=== PATIENT | female | born 1995 | race Caucasian/White ===

== ENCOUNTER 2022-08-01 18:54 | Emergency (ER) | payer MEDICAID, SELFPAY ==
--- NOTE | ~2022-08-01 | XR_ITS ---
EXAMINATION: XR CHEST CLINICAL INFORMATION: Cough COMPARISON: Chest x-ray 08/14/2014 TECHNIQUE: 2 views of the chest were obtained. FINDINGS: The lungs are clear. No airspace consolidation, pleural effusion, or pneumothorax. The cardiomediastinal silhouette is within normal limits. No acute osseous injury. XR/XR chest 2V IMPRESSION: No acute pulmonary process.
[2022-08-01 19:04] VITALS: BP 117/64; PULSE 92; RESP 18; TEMP 37.9; O2SAT 98; BMI 36.1
--- NOTE | 2022-08-01 19:04 | ED_ITS ---
HPI - URI/Sore Throat General Chief Complaint: Chest Pain Stated Complaint: Chest pain, vomiting blood Time Seen by Provider: 08/01/22 20:01 Source: patient Mode of arrival: ambulatory Limitations: no limitations History of Present Illness HPI Narrative: 27 yo otherwise healthy female presenting to the ER for evaluation of 6 days of chest congestion and tightness, headache, body aches, nausea and vomiting. She is the only one at home feeling unwell. She reports some chills but unknown if she has had a fever at home. She reports an upset stomach but no specific pain. After a few episodes of vomiting she noticed her vomitus was blood streaked today. MD elicited complaint: cough and other (chest congestion, vomiting) Onset (ago): day(s) (6) Severity: moderate Description of mucous: clear Able to tolerate fluids by mouth: Yes Exacerbating factors: nothing Relieving factors: nothing Associated symptoms: chills, myalgias, headache, rhinorrhea, nasal congestion, sore throat, cough, chest pain, shortness of breath, nausea and vomiting Treatments prior to arrival: none Related Data Previous Rx's Medication Instructions Recorded benzonatate 100 mg capsule 100 mg PO TID PRN cough #30 caps 08/01/22 hydrocodone-homatropine 5 mg-1.5 5 ml PO Q4-6H PRN cough #60 mL 08/01/22 mg/5 mL (5 mL) oral syrup (Hycodan) ondansetron 4 mg disintegrating 4 mg PO Q8H PRN nausea and 08/01/22 tablet vomiting #10 tabs Allergies Allergy/AdvReac Type Severity Reaction Status Date / Time No Known Allergies Allergy Unverified 02/25/20 17:08 [No Known Allergies*] Review of Systems Review of Systems: Yes all other systems are reviewed and are negative PMFSH Social History Social History Advance Directives: No Advance Directives Information Provided: No Physical Exam Vital Signs: Vital Signs: Last Vital Signs Temp 100.3 F 08/01/22 19:04 Pulse 92 08/01/22 19:04 Resp 18 08/01/22 19:04 BP 117/64 08/01/22 19:04 Pulse Ox 98 08/01/22 19:04 O2 Del Method 08/01/22 19:04 BMI result Body Mass Index 36.1 Appearance: Alert. Oriented X3. No acute distress. Eyes: Pupils equal, round and reactive to light. ENT: Pharynx normal. Nasal congestion Neck: Normal inspection. Neck supple. CVS: Normal heart rate and rhythm. Pulses normal. Anterior chest wall t enderness Respiratory: No respiratory distress. Breath sounds normal. Abdomen: Soft and nontender. +BS x4 Skin: Skin warm and dry. Normal skin color. Normal skin turgor. No rashes. Extremities: No lower extremity edema. Neuro: Oriented X 3. Nonfocal Course Course Course Narrative: 27 year old female presenting today for evaluation of chest pressure, shortness of breath, and vomiting x 6 days. Reports that she has noticed her vomit had some blood it in today. She reports that she has had cough. Temperature 100.3, otherwise all other VS are WNL. Labs, EKG, and chest x-ray ordered. Patient is stable to return to the waiting room until a treatment room is available. Reevaluation(s) Reevaluation #1: CXR clear. labs ok. EKG ok. COVID positive. patient counseled on diagnosis and management. normal SPO2 and clear lung sounds. comfortable for d/c home. sent in rx for antitussives and antiemetics Medical Decision Making Differential Diagnosis Differential Diagnoses: The differential diagnosis associated with the prese ntation includes COVID, Flu, RSV, other viral syndrome, costochondritis, PNA, gastroenteritis, UGIB, likely nancy tinoco tear, doubt PUD or varices Lab Data MDM Lab Attestation statement: I reviewed the patient's lab results. unremarkable. 08/01/22 19:15 08/01/22 19:15 Labs: Lab Results 08/01/22 08/01/22 08/01/22 Range/Units 19:15 19:15 19:15 WBC 7.9 (4.8-10.8) X10*3/uL RBC 3.95 L (4.20-5.50) X10*6/uL Hgb 10.3 L (12.0-16.0) g/dl Hct 32.9 L (37.0-47.0) % MCV 83.3 (80.0-98.0) fL MCH 26.1 L (27.0-33.0) pg MCHC 31.3 (31.0-35.0) g/dl RDW 13.3 (11.0-16.0) % Plt Count 304 (160-400) X10*3/uL MPV 9.1 L (9.4-12.3) fL Immature Gran % (Auto) 0.3 (0.0-0.4) % Neut % (Auto) 59.0 (45-73) % Lymph % (Auto) 33.4 (20-40) % [place] % (Auto) 5.4 (2-11) % Eos % (Auto) 1.5 (0-4) % Baso % (Auto) 0.4 (0-2) % Lymph # (Auto) 2.6 (1.2-4.9) X10*3/uL [place] # (Auto) 0.4 (0.1-1.2) X10*3/uL Eos # (Auto) 0.1 (0.0-0.4) X10*3/uL Baso # (Auto) 0.0 (0.0-0.2) X10*3/uL Abs Immat Gran (auto) 0.02 (0.00-0.03) X10*3/uL Absolute Neuts (auto) 4.6 (2.0-8.3) x10*3/uL Absolute Nucleated RBC 0.000 (0.0-0.012) X10*3/uL Nucleated RBC % (auto) 0.0 (0.0-0.2) /100WBC Sodium 140 (135-145) mmol/L Potassium 4.1 (3.3-5.1) mmol/L Chloride 107 (96-108) mmol/L Carbon Dioxide 26 (22-29) mmol/L Anion Gap 11 L (12-20) BUN 9 (9-16) mg/dL Creatinine 0.65 (0.5-1.4) mg/dL Estim Creat Clear Calc 138.0 Estimated GFR > 60 Random Glucose 107 (60-115) mg/dL Calcium 8.8 (8.4-10.2) mg/dL Magnesium 2.0 (1.6-2.6) mg/dL Total Bilirubin 0.4 (0.0-1.0) mg/dL Direct Bilirubin < 0.2 (0.0-0.5) mg/dL AST 11 (5-31) U/L ALT 14 (0-31) U/L Alkaline Phosphatase 83 (39-117) U/L Total Protein 7.6 (6.5-8.0) g/dL Albumin 4.2 (3.5-5.0) g/dL Beta HCG, Quant mIU/mL COVID-19 (MARTHA) Positive A (Negative) COVID-19 Clin Com See Note 08/01/22 Range/Units 19:15 WBC (4.8-10.8) X10*3/uL RBC (4.20-5.50) X10*6/uL Hgb (12.0-16.0) g/dl Hct (37.0-47.0) % MCV (80.0-98.0) fL MCH (27.0-33.0) pg MCHC (31.0-35.0) g/dl RDW (11.0-16.0) % Plt Count (160-400) X10*3/uL MPV (9.4-12.3) fL Immature Gran % (Auto) (0.0-0.4) % Neut % (Auto) (45-73) % Lymph % (Auto) (20-40) % [place] % (Auto) (2-11) % Eos % (Auto) (0-4) % Baso % (Auto) (0-2) % Lymph # (Auto) (1.2-4.9) X10*3/uL [place] # (Auto) (0.1-1.2) X10*3/uL Eos # (Auto) (0.0-0.4) X10*3/uL Baso # (Auto) (0.0-0.2) X10*3/uL Abs Immat Gran (auto) (0.00-0.03) X10*3/uL Absolute Neuts (auto) (2.0-8.3) x10*3/uL Absolute Nucleated RBC (0.0-0.012) X10*3/uL Nucleated RBC % (auto) (0.0-0.2) /100WBC Sodium (135-145) mmol/L Potassium (3.3-5.1) mmol/L Chloride (96-108) mmol/L Carbon Dioxide (22-29) mmol/L Anion Gap (12-20) BUN (9-16) mg/dL Creatinine (0.5-1.4) mg/dL Estim Creat Clear Calc Estimated GFR Random Glucose (60-115) mg/dL Calcium (8.4-10.2) mg/dL Magnesium (1.6-2.6) mg/dL Total Bilirubin (0.0-1.0) mg/dL Direct Bilirubin (0.0-0.5) mg/dL AST (5-31) U/L ALT (0-31) U/L Alkaline Phosphatase (39-117) U/L Total Protein (6.5-8.0) g/dL Albumin (3.5-5.0) g/dL Beta HCG, Quant < 2 mIU/mL COVID-19 (MARTHA) (Negative) COVID-19 Clin Com Independent Interpretation I performed an independent interpretation of an: EKG Interpretation: EKG - normal sinus rhythm, HR 88 bpm, normal SD interval, normal Qtc, no ST segment elevations or depressions Radiology Impression Discussion of test interpretation with radiology: I have reviewed the radiologist's reading. Radiologist Impression: XR/XR chest 2V IMPRESSION: No acute pulmonary process. External Record Review External record reviewed: Outpatient record, Prior outpatient labs and Prior outpatient radiology Prescription Management I considered prescription management with: Antiviral and Other (anti-tussives a nd antiemetics) 6 days sxs - out of treatment window with paxlovid, low risk for severe disease Critical Care Time Critical Care Time Critical Care Time: No Discharge Plan Discharge Clinical Impression: COVID-19 Patient Disposition: Home, Self-Care Instructions: Covid-19 Viral Syndrome and Novel Coronavirus (ED) Hey/Ath Additional Instructions: You were found to be COVID-19 POSITIVE today. Your lab workup was normal and your EKG was normal. Your chest x-ray and oxygen levels were normal. Rest. Drink plenty of fluids. Do not go out in public while you are feeling unwell. Take over the counter cold/flu medications as needed for your symptoms. Take Tylenol and/or Motrin as needed for fevers and body aches. Follow up with your doctor this week. If you develop new or worsening symptoms call 911 or come back to the ER for further evaluation. Prescriptions: New ondansetron 4 mg tablet,disintegrating 4 mg PO Q8H PRN (Reason: nausea and vomiting) Qty: 10 0RF hydrocodone-homatropine [Hycodan] 5-1.5 mg/5 mL (5 mL) syrup 5 ml PO Q4-6H PRN (Reason: cough) Qty: 60 0RF Rx Instructions: Partial Fill upon patient request. benzonatate 100 mg capsule 100 mg PO TID PRN (Reason: cough) Qty: 30 0RF Interventions: ED Discharge Assessment Last Done: 08/01/22 20:09
--- NOTE | 2022-08-01 19:05 | ECG_ITS ---
Test Reason : CHEST PAIN Blood Pressure : / mmHG Vent. Rate : 088 BPM Atrial Rate : 088 BPM P-R Int : 168 ms QRS Dur : 090 ms QT Int : 352 ms P-R-T Axes : 040 046 007 degrees QTc Int : 425 ms Normal sinus rhythm Normal ECG When compared with ECG of 04-DEC-2010 09:57, No significant change was found Referred By: Barbara Avila Electronically Signed By:SATHISH GRIJALVA
[2022-08-01 19:20] LABS: MANUAL DIFF FLAG NO
[2022-08-01 19:29] LABS: Basophils Percent Auto 0.4 % (0-2); Eosinophils Absolute Auto 0.1 X10*3/uL (0.0-0.4); Eosinophils Percent Auto 1.5 % (0-4); Hematocrit 32.9 % (37.0-47.0); Hemoglobin 10.3 g/dl (12.0-16.0); Imm Gran Abs Auto 0.02 X10*3/uL (0.00-0.03); Imm Gran Pct Auto 0.3 % (0.0-0.4); Lymphocytes Absolute Auto 2.6 X10*3/uL (1.2-4.9); Lymphocytes Percent Auto 33.4 % (20-40); Mean Corpuscular HGB Conc 31.3 g/dl (31.0-35.0); Mean Corpuscular Hemoglobin 26.1 pg (27.0-33.0); Mean Corpuscular Volume 83.3 fL (80.0-98.0); Mean Platelet Volume 9.1 fL (9.4-12.3); Monocytes Absolute Auto 0.4 X10*3/uL (0.1-1.2); Monocytes Percent Auto 5.4 % (2-11); Neutrophils Absolute Auto 4.6 x10*3/uL (2.0-8.3); Platelet Count 304 X10*3/uL (160-400); Red Blood Count 3.95 X10*6/uL (4.20-5.50); Red Cell Distribution Width 13.3 % (11.0-16.0); White Blood Count 7.9 X10*3/uL (4.8-10.8)
[2022-08-01 19:34] LABS: COVID-19 Test Positive (Negative); IDNOW Serial# 9DB6401D
[2022-08-01 19:39] LABS: Alanine Aminotransferase 14 U/L (0-31); Albumin Level 4.2 g/dL (3.5-5.0); Alkaline Phosphatase 83 U/L (39-117); Anion Gap 11 (12-20); Aspartate Amino Transferase 11 U/L (5-31); Bilirubin Direct < 0.2 mg/dL (0.0-0.5); Bilirubin Total 0.4 mg/dL (0.0-1.0); Blood Urea Nitrogen 9 mg/dL (9-16); Calcium 8.8 mg/dL (8.4-10.2); Carbon Dioxide 26 mmol/L (22-29); Chloride 107 mmol/L (96-108); Estimated Glomerular Filt Rate > 60; Glucose Random 107 mg/dL (60-115); Potassium 4.1 mmol/L (3.3-5.1); Sodium 140 mmol/L (135-145); Total Protein 7.6 g/dL (6.5-8.0)
[2022-08-01 19:52] LABS: HCG Quantitative < 2 mIU/mL
== END 2022-08-01 20:10 | disposition home or self-care (01) ==
PROVIDERS: Physician Assistant; Emergency Provider Emergency Medicine
DX: U07.1 COVID-19 (principal); R05.9 Cough, unspecified; R07.89 Other chest pain; R51.9 Headache, unspecified; Z79.899 Other long term (current) drug therapy
CPT/HCPCS: 36415; 71046; 80048; 80076; 83735; 84702; 85025; 87635; 93005; 99283

== ENCOUNTER 2024-05-05 15:24 | Outpatient (REF) | payer MEDICAID, SELFPAY ==
[2024-05-05 16:22] LABS: MANUAL DIFF FLAG NO
[2024-05-05 16:38] LABS: Basophils Absolute Auto 0.1 X10*3/uL (0.0-0.2); Basophils Percent Auto 0.5 % (0-2); Eosinophils Absolute Auto 0.1 X10*3/uL (0.0-0.4); Hemoglobin 11.2 g/dl (12.0-16.0); Imm Gran Abs Auto 0.03 X10*3/uL (0.00-0.03); Imm Gran Pct Auto 0.3 % (0.0-0.4); Lymphocytes Percent Auto 32.5 % (20-40); Mean Corpuscular HGB Conc 32.9 g/dl (31.0-35.0); Mean Corpuscular Hemoglobin 27.4 pg (27.0-33.0); Mean Corpuscular Volume 83.1 fL (80.0-98.0); Mean Platelet Volume 9.9 fL (9.4-12.3); Monocytes Absolute Auto 0.4 X10*3/uL (0.1-1.2); Monocytes Percent Auto 3.9 % (2-11); Neutrophils Absolute Auto 5.7 x10*3/uL (2.0-8.3); Neutrophils Percent Auto 61.8 % (45-73); Platelet Count 322 X10*3/uL (160-400); Red Blood Count 4.09 X10*6/uL (4.20-5.50); Red Cell Distribution Width 13.3 % (11.0-16.0); White Blood Count 9.2 X10*3/uL (4.8-10.8)
[2024-05-05 16:54] LABS: Estimated Average Glucose 103 mg/dL; Hemoglobin A1c % 5.2 % (<6.0); Total Hemoglobin (HGBA1C) 3104.6525 umol/L
[2024-05-05 17:07] LABS: Alanine Aminotransferase 32 U/L (0-31); Albumin Level 4.4 g/dL (3.5-5.0); Alkaline Phosphatase 105 U/L (39-117); Anion Gap 11 (12-20); Aspartate Amino Transferase 21 U/L (5-31); Bilirubin Total 0.3 mg/dL (0.0-1.0); Blood Urea Nitrogen 12 mg/dL (9-16); Calcium 9.6 mg/dL (8.4-10.2); Carbon Dioxide 27 mmol/L (22-29); Chloride 103 mmol/L (96-108); Cholesterol 189 mg/dL (<200); Estimated Glomerular Filt Rate > 60; Glucose Random 115 mg/dL (60-115); HDL Cholesterol 40 mg/dL (>40); Iron 43 mcg/dL (30-160); LDL Cholesterol Calculated 115 mg/dL (<100); Percent Iron Saturation 15 % (15-50); Potassium 3.9 mmol/L (3.3-5.1); Sodium 137 mmol/L (135-145); Total Iron Binding Capacity 288 mcg/dL (228-428); Triglycerides 173 mg/dL (<150); Unsaturated Iron Binding 245 ug/dL
[2024-05-05 17:22] LABS: Ferritin 33 ng/mL (10-122); TSH reflex Free T4 0.63 uIU/mL (0.32-4.0)
[2024-05-05 17:35] LABS: Folate 14.4 ng/mL (> or = 4.0); Vitamin B12 374 pg/mL (200-900)
[2024-05-06 08:10] LABS: ~HepC Num1 0.11 S/CO (0.00-0.79); ~Hepatitis C Antibody Nonreactive (Nonreactive)
== END 2024-05-05 15:25 | disposition home or self-care (01) ==
LOC: HO.HHCL 15:24
PROVIDERS: Visit Provider Nurse Practitioner Family
DX: Z00.00 Encounter for general adult medical examination without abnormal findings (principal); F41.9 Anxiety disorder, unspecified; E66.9 Obesity, unspecified; D50.9 Iron deficiency anemia, unspecified
CPT/HCPCS: 36415; 80053; 80061; 82607; 82728; 82746; 83036; 83540; 84443; 85025; 86803

== ENCOUNTER 2024-07-20 12:38 | Outpatient (REF) | payer MEDICAID, SELFPAY ==
[2024-07-20 13:18] LABS: MANUAL DIFF FLAG NO
[2024-07-20 13:33] LABS: Basophils Absolute Auto 0.1 X10*3/uL (0.0-0.2); Basophils Percent Auto 0.5 % (0-2); Eosinophils Absolute Auto 0.2 X10*3/uL (0.0-0.4); Eosinophils Percent Auto 1.6 % (0-4); Hemoglobin 10.6 g/dl (12.0-16.0); Imm Gran Abs Auto 0.03 X10*3/uL (0.00-0.03); Imm Gran Pct Auto 0.3 % (0.0-0.4); Lymphocytes Absolute Auto 3.4 X10*3/uL (1.2-4.9); Lymphocytes Percent Auto 36.1 % (20-40); Mean Corpuscular HGB Conc 31.2 g/dl (31.0-35.0); Mean Corpuscular Hemoglobin 26.2 pg (27.0-33.0); Mean Platelet Volume 9.7 fL (9.4-12.3); Monocytes Absolute Auto 0.4 X10*3/uL (0.1-1.2); Monocytes Percent Auto 4.2 % (2-11); Neutrophils Absolute Auto 5.5 x10*3/uL (2.0-8.3); Neutrophils Percent Auto 57.3 % (45-73); Platelet Count 334 X10*3/uL (160-400); Red Blood Count 4.05 X10*6/uL (4.20-5.50); Red Cell Distribution Width 14.1 % (11.0-16.0); White Blood Count 9.5 X10*3/uL (4.8-10.8)
--- OUTSIDE RECORDS SUMMARY | 2024-07-20 13:37 | XMS_ITS | Encounter Summary ---
Author Organization [employer] Address [address] [facility] [address] [place] [address] Care Team Providers Care Power Distribution Engineer Name Role Phone Brandi Khalil PUMP OPERATOR Primary Care Provider Encounter Details Date Type Department Care Team (Latest Contact Info) Description 06/26/2024 Travel Social History Tobacco Use Types Packs/Day Years Used Date Smoking Tobacco: Never Smokeless Tobacco: Never Alcohol Use Standard Drinks/Week Comments Never 0 (1 standard drink = 0.6 oz pur e alcohol) Depression Answer Date Recorded Patient Health Questionnaire-9 Score 0 06/26/2024 Patient Health Questionnaire-9 Score 0 06/26/2024 Last PHQ-9: Questionnaire Data Not on file 0 06/26/2024 Housing Stability Answer Date Recorded What is your housing situation today? I have megan brown 04/28/[address] you li ve. Do you have problems with any of the following? None of the above 04/28/2024 Food Insecurity Answer Date Recorded Within the past 12 months, y ou worried that your food would run out before you got money to buy more: Never True 04/28/2024 Within the past 12 months,th e food you bought just didn't last and you didn't have enough money to get more: Never True Transportation Answer Date Recorded In the past 12 months, has l ack of transportation kept you from medical appts, meetings, work or from getting things needed for daily living? No 04/28/2024 Utilities Answer Date Recorded In the past 12 months, has t he electric, gas, oil or water company threatened to shut off services in your home? No 04/28/2024 Depression Answer Date Recorded Patient Health Questionnaire-2 Score 0 06/26/2024 Internet Access Answer Date Recorded Internet Access Q1 Yes 04/28/2024 Internet Access Q2 Not on file 04/28/2024 Comments Unknown Sex and Gender Information Value Date Recorded Sex Assigned at Female 04/09/2022 10:33 AM EDT Legal Sex Female 10:33 AM EDT Gender Identity Female 07/20/2022 1:44 PM EST Sexual Orientation Straight 07/20/2022 1: 44 PM EST documented as of this encounter Plan of Treatment Upcoming Encounters Date Type Department Care Team (Late st Contact Info) Description 08/07/2024 1:00 PM EST Office Visit [facility] [address] [place] [address] Brandi Khalil FNP [address] [place] [address] documented as of this encounter Visit Diagnoses Not on filedocumented in this encounter Additional Health Concerns Assessment Noted Time PHQ-9 Depression Total Score: 0 06/26/19 25 1:24 PM EST documented as of this encounter Care Teams Power Distribution Engineer Relationship Specialty Start Date End Date Brandi Khalil FNP [address] [place] [address] PCP - General Family Medicine 02/11/24 documented as of this encounter
--- OUTSIDE RECORDS SUMMARY | 2024-07-20 13:37 | XMS_ITS | Encounter Summary ---
Author Organization [employer] Address [address] [place] [address] [address], [place] [address] Care Team Providers Care Pleat Taper Name Role Phone Simran Brandi [facility] Primary Care Provider [phone] Reason for Visit * Reason Onset Date Comments Nurse Triage 07/14/2024 Encounter Details Date Type Department Care Team ([facility] st Contact Info) Description 07/14/2024 Telephone [facility] [address] [place] [address] [place] [facility] [address] [place] [address] Nurse Triage Social History Tobacco Use Types Packs/Day Years [...] PM EST documented as of this encounter Miscellaneous Notes * Telephone Encounter - Thalia Bates RN - 07/14/2024 11:52 AM EST called pt to triage, spoke to pt. pt states recently having episodes of intermittent palpitations. pt denies chest pain, sob, severe or sustained palpitations or other associated symptoms. given apptwith PCP 07/20 at 11:30 for exam. advised home care: rest, fluids, lie down, fall precautions if dizzy, and report any severe or worsening symptoms. pt understands and agrees with plan. pt will probably hold the Topamax for now due to the symptoms to see if it resolves. insurance verified. Protocol Used: Heart Rate and Heartbeat Questions (Adult) Protocol-Based Disposition: See in Office or Video Visit within 3 Days Positive Triage Question: * Palpitations and no improvement after following Care Advice * All higher-acuity triage questions were negative Care Advice Discussed: * Reassurance and Education - Palpitations and Extra Heartbeats * Healthy Living Tips for People With Palpitations * Avoid Caffeine * Limit Alcohol * Reasons To Call Back - You become worse * Telephone Encounter - Ken Arcos - 07/14/2024 9:50 AM EST Symptom: Heartbeat Symptoms (Fast, Slow, or Irregular) Outcome: Schedule an urgent appointment (within 1 hour) or talk to a nurse or provider soon Reason: Getting worse Please contact pt at [phone]. documented in this encounter Plan of Treatment Upcoming Encounters Date Type Department Care Team (Late st Contact Info) Description 08/07/2024 1:00 PM EST Office Visit [facility] [address] [place] [address] Brandi Khalil FNP [address] [place] [address] documented as of this encounter Visit Diagnoses Not on filedocumented in this encounter Additional Health Concerns Assessment Noted Time PHQ-9 Depression Total Score: 0 06/26/19 25 1:24 PM EST documented as of this encounter Care Teams Pleat Taper Relationship Specialty Start Date End Date Brandi Khalil FNP [address] [place] [id number] PCP - General Family Medicine 02/11/24 documented as of this encounter
--- OUTSIDE RECORDS SUMMARY | 2024-07-20 13:37 | XMS_ITS | Encounter Summary ---
Author Organization [employer] Address [address] [facility] [address] [place] [address] Care Team Providers Care Hot Bread Baker Name Role Phone Brandi Khalil COMMUNICATION CONSULTANT Primary Care Provider [phone] Encounter Details Date Type Department Care Team (Latest Contact Info) Description 07/20/2024 Travel Social History Tobacco Use Types Packs/Day [...] Access Q2 Not on file 04/28/2024 Comments No Sex and Gender Information Value Date Recorded Sex Assigned at Female 04/09/2022 10:33 AM EDT Legal Sex Female 10:33 AM EDT Gender Identity Female 07/20/2022 1:44 PM EST Sexual Orientation Straight 07/20/2022 1: 44 PM EST documented as of this encounter Plan of Treatment Upcoming Encounters Date Type Department Care Team (Late st Contact Info) Description 08/07/2024 1:00 PM EST Office Visit [facility] [address] [place] [address] Brandi Khalil FNP [address] [place] [address] documented as of this encounter Visit Diagnoses Not on filedocumented in this encounter Additional Health Concerns Assessment Noted Time PHQ-9 Depression Total Score: 0 06/26/19 25 1:24 PM EST documented as of this encounter Care Teams Hot Bread Baker Relationship Specialty Start Date End Date Brandi Khalil FNP [address] [place] [address] PCP - General Family Medicine 02/11/24 documented as of this encounter
--- OUTSIDE RECORDS SUMMARY | 2024-07-20 13:37 | XMS_ITS | Clinical Summary ---
Author Organization [address] [facility] Address [address] [place] [address] Phone Care Team Providers Care Side Panel Padder Name Role Phone Jade Hudson SUPERVISOR INSTRUMENT MAINTENANCE Primary Care Provider [phone] Social History Tobacco Use Types Packs/Day Years Used Date Smoking Tobacco: Never Assessed Comments Unknown Sex and Gender Information Value Date Recorded Sex Assigned at Not on file Legal Sex Female 7:26 AM EST Gender Identity Not on file Sexual Orientation Not on file Plan of Treatment Upcoming Encounters Date Type Department Care Team ([facility] Contact Info) Description 08/17/2024 3:00 PM EDT Consult Orthopedic Surgery - [place] [id number] [id number] Dominik Gonzalez, DPM [address] [address] Health Maintenance Due Date Last Done Comments DTaP,Tdap,and Td Vaccines (1 - Tdap) 2000 Hepatitis B Vaccines (1 of 3 - 19+ 3-dose series) 2012 Cervical Cancer Screening: P ap Smear 2014 COVID-19 Vaccine ( - 2023-2 5 season) 2024 Influenza Vaccine (#1) 2024 Depression Screening 05/22/2024 HIV Screening 05/22/2024 Hepatitis C Screening 05/22/2024 Social Influencers of Health Screening 05/22/2024 HIB Vaccines Aged Out No longer eligi ble based on patient's age to complete this topic HPV Vaccines Aged Out No longer eligi ble based on patient's age to complete this topic Hepatitis A Vaccines Aged Out No long er eligible based on patient's age to complete this topic IPV Vaccines Aged Out No longer eligi ble based on patient's age to complete this topic MMR Vaccines Aged Out No longer eligi ble based on patient's age to complete this topic Meningococcal ACWY Vaccine Aged Out N o longer eligible based on patient's age to complete this topic Meningococcal B Vacine Aged Out No lo nger eligible based on patient's age to complete this topic Pneumococcal Vaccine: Pediat rics (0 to 5 Years) and At-Risk Patients (6 to 64 Years) Aged Out No longer eligible b ased on patient's age to complete this topic RSV Immunization Patients Un medina 20 months Aged Out No longer eligible b ased on patient's age to complete this topic Varicella Vaccines Aged Out No longer eligible based on patient's age to complete this topic Insurance MEDICAID - [place] Care Teams Side Panel Padder Relationship Specialty Start Date End Date Jade Hudson FNP [address] [place] [id number] PCP - General Nurse Practitioner 05/22/24
--- OUTSIDE RECORDS SUMMARY | 2024-07-20 13:37 | XMS_ITS | Clinical Summary ---
Author Organization [employer] Address [address] [place] [address] 7 [place] [address] Care Team Providers Care Shake Out Worker Name Role Phone Brandi Khalil BI TESTER Primary Care Provider [phone] Allergies No known active allergies Medications * This document contains information received from the source organization and may not represent a complete record from that organization. cholecalciferol (Vitamin D3) 25 MCG (1000 UT) tabletIndications: Vitamin D insufficiency TAKE 1 TABLET (25 MCG) BY MOUTH IN THE MORNING 90 tablet 3 Active terbinafine (LamISIL AT) 1 % creamIndications:T inea pedis, unspecified laterality Apply topically 2 times daily. 15 g 4 Active ciclopirox (Ciclodan) 8 % solutionIndication s:Onychomycosis Apply topically at bedtime. 10 mL 1 4 08/04/19 25 Active phentermine 8 MG tabletIndications: Class 3 severe obesity due to excess calories with body mass index (BMI) of 40.0 to 44.9 in adult, unspecified whether serious comorbidity present (CMS/HCC) Take 1 tablet (8 mg) by mouth 3 times daily. 84 tablet 5 Active topiramate (Topamax) 25 MG tabletIndications: Class 3 severe obesity due to excess calories with body mass index (BMI) of 40.0 to 44.9 in adult, unspecified whether serious comorbidity present (CMS/HCC) Take 1 tablet (25 mg) by mouth before evening meal. 30 tablet 11 5 07/02/19 26 Active Active Problems Problem Noted Date Diagnosed Date Cervical intraepithelial neoplasia grade 1 05/05 Overview (05/05/2024): ECC neg. pt notified of results. Plan for repeat pap with co-testing in 12 months (august 2020) colpo performed - ECC only no AW changes. Obesity with body mass index 30 or greater 05/05 Assessment & Plan (05/05/2024 8:31 PM EST): Reviewed sleep hygiene, increased activity, and balanced nutrition Return to clinic in 3 months sooner prn Class 2 obesity 05/05/2024 Tinea versicolor 05/05/2024 Health care maintenance 05/05/2024 Assessment & Plan (05/05/2024 8:31 PM EST): Pt reports most recent pap wnl Metabolic labs as ordered below Pt declines seasonal vaccines today Iron deficiency anemia 05/05/2024 Assessment & Plan (05/05/2024 8:31 PM EST): Hx of, trend labs, Anxiety 05/05/2024 Onychomycosis 05/05/2024 Assessment & Plan (05/05/2024 8:32 PM EST): Great toe, referral to podiatry Dietary counseling 05/05/2024 Assessment & Plan (05/05/2024 8:30 PM EST): Encouraged minimizing processed foods and increasing whole foods particularly vegetables Exercise counseling 05/05/2024 Assessment & Plan (05/05/2024 8:30 PM EST): Encouraged daily movement, working up to 30 minutes daily 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 Pt did not keep 2 sched appts. Vitamin D deficiency 06/01/2009 Overview (05/05/2024): level 17 at diagnosis Encounters * This document contains information received from the source organization and may not represent a complete record from that organization. Date Type Department Care Team Description 07/20/2024 11:30 AM EST Office Visit [facility] [place] [address] Brandi Khalil FNP Palpitations (Primary Dx) 07/20/2024 Travel 07/14/[address] [address] Brandi Khalil FNP Nurse Triage 06/26/2024 1:15 PM EST Office Visit [facility] [place] [address] Brandi Khalil FNP Anxiety (Primary Dx); Dietary counseling; Exercise counseling; Class 3 severe obesity due to excess calories with body mass index (BMI) of 40.0 to 44.9 in adult, unspecified whether serious comorbidity present ([facility]) 06/26/2024 Travel 05/06/[address] [address] Michelle Santos RN 05/06/2024 Orders Only [address] [address] Jade Hudson NP Onychomycosis (Primary Dx) 05/06/[address] [address] Michelle Santos RN 05/05/2024 2:45 PM EST Office Visit [address] [address] Jade Hudson NP Obesity with body mass index 30 or greater (Primary Dx); Health care maintenance; Iron deficiency anemia, unspecified iron deficiency anemia type; Anxiety; Onychomycosis; Dietary counseling; Exercise counseling 05/04/[address] [address] Hellen Modi MA Chart Prep 04/28/2024 Patient Outreach [facility] [address] [place], [place] [phone] Brandi Khalil FNP Pre-visit Planning (SDOH negative. Tobacco screening negative. ) from Last 3 Months Immunizations Name Administration Dates Next Due DTaP 03/21/1995, 4,1993,09/19 HPV, Quadrivalent 08/01/2007,02/18/2007,12/11/19 07 Hep A, Adult 07/20/2013,08/12/2012 Hep B, Adolescent or Pediatric 05/12/2002,2001,10/09/2001 IPV 10/09/2001, 5,1993,10/28,1993 Influenza Injectable Quadriv alant Preservative Free IIV4 MDCK 03/31/2018 Influenza injectable quadriv alent preservative free 04/21/2021,05/08/2017 MMR 03/20/2002,08/24/1996,1993 Meningococcal ACWY, unspecified 08/01/2007 Td (adult), unspecified 10/22/2001 Tdap 03/08/2021, 9,07/20/2013,12/10 Varicella 12/30/2008,2000 Family History Medical History Relation Name Comments Asthma Brother Diabetes Mother Relation Name Status Comments Brother Mother Social History Tobacco Use Types Packs/Day Years Used Date Smoking Tobacco: Never Smokeless Tobacco: Never Tobacco Cessation:Counseling Given: Not Answered Alcohol Use Standard Drinks/Week Comments Never 0 [...] Orientation Straight 07/20/2022 1: 44 PM EST Last Filed Vital Signs Vital Sign Reading Time Taken Comments Blood Pressure 120/67 07/20/2024 11:43 AM EST Pulse 65 07/20/2024 11:43 AM EST Temperature 36.3 ??C (97.3 ??F) 07/20/2024 11:[address] Respiratory Rate 16 07/20/2024 11:43 AM EST Oxygen Saturation 98% 06/26/2024 1:11 PM EST Inhaled Oxygen Concentration - - Weight 110 kg (243 lb 4 oz) 07/20/2024 11:43 AM EST Height 162.6 cm (5' 4 ) 07/20/2024 11:43 AM EST Body Mass Index 41.75 07/20/2024 11:43 AM EST Plan of Treatment Upcoming Encounters Date Type Department Care Team (Late st Contact Info) Description 08/07/2024 1:00 PM EST Office Visit [facility] [address] [place] [address] [facility] [address] [place] [address] Health Maintenance Due Date Last Done Comments Family Planning (PISQ) 2008 Pap Smear 10/12/2023 10/11/2020, 03/0 10/2019, 05/20/2019 COVID-19 Vaccine ( season) 2024 10/04/2021, 09/06/2021 Influenza Vaccine (#1) 2024 , 03/31/2018, 05/08/2017 SDOH Screening 04/28/2025 04/28/2024 Alcohol/Substance Use Screening 05/05/2025 05/05/2024 Depression Screening 06/26/2025 06/26/2024, 06/26/19 Tobacco Screening 07/20/2025 07/20/2024 Cervical Cancer Screening 10/11/2025 HPV/Cotest 10/11/2025 10/11/2020, 08/13/2019 Lipid Panel 05/05/2029 05/05/2024, 07/20/2022 DTaP/Tdap/Td Vaccines (10 - Td or Tdap) 03/08/2031 03/08/2021, 02/02/2019, 07/20/2013, Additional history exists Zoster Vaccines (1 of 2) 2043 RSV Patients and Patients Aged 60 years or older (1 - 1-dose 75+ series) 2068 IPV Vaccines Completed 10/09/2001, 03/10, 1993, Additional history exists Hepatitis B Vaccines Completed 05/12/2002, 01/01/2002, 10/09/2001 HPV Vaccines Completed 08/01/2007, 02/08, 12/10/2006 Meningococcal Vaccine Aged Out 08/01/2007 No roxanne елена eligible based on patient's age to complete this topic Hepatitis A Vaccines Aged Out 07/20/2013, 08/13/19 13 No longer eligible based on patient's age to complete this topic HIV Screening Completed 07/20/2022 Hepatitis C Screening Completed 05/05/2024 HIB Vaccines Aged Out No longer eligi ble based on patient's age to complete this topic Pneumococcal Vaccine: Pediatrics (0 to 5 Years) and At-Risk Patients (6 to 49) Years) Aged Out No longer eligible based on patient's age to complete this topic RSV under 20 months Aged Out No longe r eligible based on patient's age to complete this topic Rotavirus Vaccines Aged Out No longer eligible based on patient's age to complete this topic Procedures Procedure Name Priority Date/Time Associated Diagnosis Comments CBC WITH AUTO DIFFERENTIAL Routine 07/20/2024 12:41 PM EST Iron deficiency anemia, unspecified iron deficiency anemia type HEMOGLOBIN A1C Routine 05/05/2024 3:36 PM EST Obesity with body mass index 30 or greater LIPID PANEL, STANDARD Routine 05/05/2024 3:26 PM EST Obesity with body mass index 30 or greater FERRITIN Routine 05/05/2024 3:26 PM EST Iron deficiency anemia, unspecified iron deficiency anemia type VITAMIN B12/FOLATE, SERUM PANEL Routine 05/05/2024 3:26 PM EST Health care maintenance HEPATITIS C AB W/REFL TO HCV RNA, QN, PCR Routine 05/05/2024 3:26 PM EST Health care maintenance COMPREHENSIVE METABOLIC PANEL Routine 05/05/2024 3:26 PM EST Obesity with body mass index 30 or greater TSH W/REFLEX TO FT4 Routine 05/05/2024 3 :26 PM EST Anxiety IRON AND TOTAL IRON BINDING CAPACITY Routine 05/05/2024 3:26 PM EST Iron deficiency anemia, unspecified iron deficiency anemia type CBC WITH AUTO DIFFERENTIAL Routine 05/05/2024 3:26 PM EST Iron deficiency anemia, unspecified iron deficiency anemia type HIV 1 RNA, QN PCR W/RFL ISABELLA (RTI,PI,INTEGRASE) Routine 07/20/2022 3:08 PM EST Screening for STD (sexually transmitted disease) HM PAP/HPV Routine 10/11/2020 from Last 3 Months or Most Recently Relevant to Health Maintenance Results * (ABNORMAL) CBC auto differential (07/20/2024 12:41 PM EST) Only the most recent of2 resultswithin the time period is included. White Blood Count 9.5 4.8 - 10.8 X10*3/uL [facility] Red Blood Count 4.05(L) 4.20 - 5.50 X10*6/uL [facility] Hemoglobin 10.6(L) 12.0 - 16.0 g/dl [facility] Hematocrit 34.0(L) 37.0 - 47.0 % [facility] Mean Corpuscular Volume 84.0 80.0 - 98.0 fL [facility] Mean Corpuscular Hemoglobin 26.2(L) 27.0 - 33.0 pg [facility] Mean Corpuscular HGB Conc 31.2 31.0 - 35.0 g/dl [facility] Red Cell Distribution Width 14.1 11.0 - 16.0 % [facility] Platelet Count 334 160 - 400 X10*3/uL [facility] Mean Platelet Volume 9.7 9.4 - 12.3 fL [facility] Neutrophils Percent Auto 57.3 45 - 73 % [facility] Imm Gran Pct Auto 0.3 0.0 - 0.4 % [facility] Lymphocytes Percent Auto 36.1 20 - 40 % [facility] Monocytes Percent Auto 4.2 2 - 11 % [facility] Eosinophils Percent Auto 1.6 0 - 4 % [facility] Basophils Percent Auto 0.5 0 - 2 % [facility] NRBC Pct Auto 0.0 0.0 - 0.2 /100WBC [facility] Neutrophils Absolute Auto 5.5 2.0 - 8.3 x10*3/uL [facility] Imm Gran Abs Auto 0.03 0.00 - 0.03 X10*3/uL [facility] Lymphocytes Absolute Auto 3.4 1.2 - 4.9 X10*3/uL [facility] Monocytes Absolute Auto 0.4 0.1 - 1.2 X10*3/uL [facility] Eosinophils Absolute Auto 0.2 0.0 - 0.4 X10*3/uL [facility] Basophils Absolute Auto 0.1 0.0 - 0.2 X10*3/uL [facility] NRBC Abs Auto 0.000 0.0 - 0.012 X10*3/uL [facility] Blood Venous blood specimen / Unknown 07/20/2024 12:41 PM EST 07/20/2024 1:14 PM EST us Jade Hudson VEHICLE CHECK IN CLERK LAB BLOOD ORDERABLES Final Resul t Performing Organization Address [facility] Co de Phone Number [facility] [address] [place] [phone] * Hemoglobin A1c (05/05/2024 3:36 PM EST) Hemoglobin A1c 5.2 <6.0 % [facility] Comment:Hemoglobin A1C Refer ence Range Adults: 4.8 - 6.0 % Non diabetic: < 6.0 % Goal: < 7.0 %Additional Action Suggested: > 8.0 %Note: Hemoglobin A1c results are invalid for patients with abnormal amounts of HbF. Blood transfusions may impact the HbA1c concentration in the patient sample. Estimated Average Glucose 103 mg/dL [facility] Comment:eAG = Estimated ave rage glucose which is %A1C expressed asaverage glucose, using the formula of the [id number] Glucose study (ADAG), Diabetes Care, Vol.31,#8,Jan. 2007 Blood Venous blood specimen / Unknown 05/05/2024 3:36 PM EST 05/05/2024 4:09 PM EST us Jade Hudson VEHICLE CHECK IN CLERK LAB BLOOD ORDERABLES Final Resul t Performing Organization Address [facility] Co de Phone Number [facility] [address] [place] [phone] * Vitamin B12/Folate, Serum Panel (05/05/2024 3:26 PM EST) Vitamin B12 374 200 - 900 pg/mL [facility] Comment:NORMAL 200-900 PG/ML INDETERMINATE 160-199 PG/ML DEFICIENT < 160 PG/ML Folate 14.4 > or = 4.0 ng/mL [facility] Comment:Reference Values:> o r = 4.0 ng/mL< 4.0 ng/mL suggests folate deficiency Methotrexate, aminopterin and folinic acid(leucovorin) are chemotherapeutic agents whose molecularstructures are similar to folate; therefore, the Architectfolate assay cannot be used for patients using these drugs. Blood Venous blood specimen / Unknown 05/05/2024 3:26 PM EST 05/05/2024 4:09 PM EST us Jade Hudson VEHICLE CHECK IN CLERK LAB BLOOD ORDERABLES Final Resul t Performing Organization Address [facility] Co de Phone Number [facility] [address] [place] [phone] * TSH W/Reflex to FT4 (05/05/2024 3:26 PM EST) TSH reflex Free T4 0.63 0.32 - 4.0 uIU/mL [facility] Blood Venous blood specimen / Unknown 05/05/2024 3:26 PM EST 05/05/2024 4:09 PM EST us Jade Hudson VEHICLE CHECK IN CLERK LAB BLOOD ORDERABLES Final Resul t Performing Organization Address [facility] de Phone Number [facility] [address] [place] [phone] * Hepatitis C Antibody with Reflex to HCV, RNA, Quantitative, Real-Time PCR (05/05/2024 3:26 PM EST) Hepatitis C Antibody Nonreactive Nonreactive [facility] Comment:Antibodies to HCV no t detected; does not exclude early acuteHCV infection. Blood Venous blood specimen / Unknown 05/05/2024 3:26 PM EST 05/05/2024 4:09 PM EST Jade Hudson VEHICLE CHECK IN CLERK LAB BLOOD ORDERABLES Final Resul t Performing Organization Address [facility] Co de Phone Number [facility] [address] [place] [phone] * Iron And Total Iron Binding Capacity (05/05/2024 3:26 PM EST) Pathologist [facility] Iron 43 30 - 160 mcg/dL [facility] Total Iron Binding Capacity 288 228 - 428 mcg/dL [facility] Percent Iron Saturation 15 15 - 50 % [facility] Unsaturated Iron Binding 245 ug/dL [facility] Blood Venous blood specimen / Unknown 05/05/2024 3:26 PM EST 05/05/2024 4:09 PM EST Jade Hudson VEHICLE CHECK IN CLERK LAB BLOOD ORDERABLES Final Resul t Performing Organization Address [facility] Co md Phone Number [facility] [address] [place] [phone] * Ferritin (05/05/2024 3:26 PM EST) Pathologist [facility] Ferritin 33 10 - 122 ng/mL [facility] Blood Venous blood specimen / Unknown 05/05/2024 3:26 PM EST 05/05/2024 4:09 PM EST Jade Hudson VEHICLE CHECK IN CLERK LAB BLOOD ORDERABLES Final Resul t Performing Organization Address [facility] Phone Number [facility] [address] [place] [phone] * (ABNORMAL) Lipid Panel, Standard (05/05/2024 3:26 PM EST) Pathologist [facility] Triglycerides 173(H) <150 mg/dL [facility] Comment:Desirable Triglyceri de: less than 150 mg/dLBorderline High Triglyceride 150-199 mg/dLHigh Triglyceride: 200-499 mg/dLVery High Triglyceride: greater than or equal to 5OO mg/dL Cholesterol 189 <200 mg/dL [facility] Comment:Desirable Cholestero l: less than 200 mg/dLBorderline High Cholesterol: 200-239 mg/dLHigh Cholesterol: greater than 239 mg/dL LDL Cholesterol Calculated 115(H) <100 mg/dL [facility] Comment:Desirable LDL: less than 100 mg/dLNear Optimal/Above Optimal LDL: 110- 129 mg/dLBorderline High LDL: 130-159 mg/dLHigh LDL: 160-189 mg/dLVery High LDL: greater than or equal to 190 mg/dL HDL Cholesterol 40(L) >40 mg/dL [facility] Comment:Desirable HDL: great er than 40 mg/dL Note: This HDL assay may give artificially low results in patients with liver disease. Blood Venous blood specimen / Unknown 05/05/2024 3:26 PM EST 05/05/2024 4:09 PM EST us Jade Hudson VEHICLE CHECK IN CLERK LAB BLOOD ORDERABLES Final Resul t [facility] [address] [place] [phone] [phone] * (ABNORMAL) Comprehensive Metabolic Panel (05/05/2024 3:26 PM EST) Sodium 137 135 - 145 mmol/L [facility] Potassium 3.9 3.3 - 5.1 mmol/L [facility] Chloride 103 96 - 108 mmol/L [facility] Carbon Dioxide 27 22 - 29 mmol/L [facility] Anion Gap 11(L) 12 - 20 [facility] Urea Nitrogen (BUN) 12 9 - 16 mg/dL [facility] Creatinine, Serum 0.73 0.5 - 1.4 mg/dL [facility] Estimated Glomerular Filt Rate >60 [facility] Comment:Chronic Kidney Disea se: Estimated GFR < 60 mL/min/1.55r5Gyeopp Kidney Disease: Estimated GFR < 15 mL/min/1.73m2 Glucose 115 60 - 115 mg/dL [facility] Calcium 9.6 8.4 - 10.2 mg/dL [facility] Bilirubin, Total 0.3 0.0 - 1.0 mg/dL [facility] Aspartate Amino Transferase 21 5 - 31 U/L [facility] Alanine Aminotransferase 32(H) 0 - 31 U/L [facility] Total Protein 8.0 6.5 - 8.0 g/dL [facility] Albumin Level 4.4 3.5 - 5.0 g/dL [facility] Alkaline Phosphatase 105 39 - 117 U/L [facility] Blood Venous blood specimen / Unknown 05/05/2024 3:26 PM EST 05/05/2024 4:09 PM EST us Jade Hudson VEHICLE CHECK IN CLERK LAB BLOOD ORDERABLES Final Resul t Performing Organization Address City/[facility]/ZIP Co de Phone Number [facility] [address] [place] [address] [phone] * HIV-1 RNA, Quantitative, Real-Time PCR with Reflex to Genotype (RTI, PI, Integrase) (07/20/2022 3:08 PM EST) Pathologist [facility] HIV 1 RNA, QN PCR NOT DETECTED copies/mL [facility], HIV 1 RNA, QN PCR NOT DETECTED Log copies/mL [facility], Comment: REFERENCE RANGE: NOT DETECTED copies/mL ?NOT DETECTED ??Log copies/mL This test was performed using Real-Time Polymerase Chain Reaction. Reportable range is 20 to 10,000,000 copies/mL (1.30-7.00 Log copies/mL). 07/20/2022 3:08 PM EST 07/20/2022 3:09 PM EST Narrative [facility] - 07/24/2022 2:16 AM EST FASTING:NO SPECIALIZED COLLECTION. PATIENT REFERRED TO ALTERNATE SITE. FASTING: NO us Herminia Taylor BI TESTER LAB BLOOD ORDERABLES Final Resu lt [facility] [address], [place] [address] [facility], [address] [place] [address] * Hm Pap Smear (10/11/2020) Pap Negative for intraephithelial lesion or malignancy Negative for intraephithelial lesion or malignancy, Other HPV Undetected Undetected, Indeterminate, Quantitative, Not Detected us Historical Provider HEALTH MAINTENANCE Final Result from Last 3 Months or Most Recently Relevant to Health Maintenance Insurance [facility] STANDARD Care Teams Shake Out Worker Relationship Specialty Start Date End Date Brandi Khalil FNP [address] [place] [phone] PCP - General Family Medicine 02/11/24
--- OUTSIDE RECORDS SUMMARY | 2024-07-20 13:37 | XMS_ITS | Encounter Summary ---
Author Organization [employer] Address [address] [place] [address] [place], [place] [address] Care Team Providers Care Police Lieutenant Precinct Name Role Phone China Santos MD Primary Care Provider + Herminia Taylor Primary Care Provider [phone] RAJNI Primary Care Provider [phone] Encounter Details Date Type Department Care Team (Late Contact Info) Description 02/12/2023 Abstract [facility] [address] [place] [address] China Santos MD [address] [place], [place] [phone] Social History Tobacco Use Types Packs/Day Years Used Date Smoking Tobacco: Never Smokeless Tobacco: Never Alcohol Use Standard Drinks/Week Comments Not Currently 0 (1 standard drink = 0.6 oz pur e alcohol) Depression Answer Date Recorded Patient Health Questionnaire-9 Score 0 07/20/2022 Depression Answer Date Recorded Patient Health Questionnaire-2 Score 0 07/20/2022 Comments Unknown Sex and Gender Information Value [...] Description 08/07/2024 1:00 PM EST Office Visit [facility] [address] [place] [address] [facility] [facility] [address] [place] [address] documented as of this encounter Visit Diagnoses Not on filedocumented in this encounter Additional Health Concerns Assessment Noted Time PHQ-9 Depression Total Score: 0 07/20/19 23 2:45 PM EST documented as of this encounter Care Teams Police [employer] Relationship Specialty Start Date End Date China Santos MD [address] [place] [phone] PCP - General Family Medicine 08/08/17 04/15/23 Herminia Taylor FNP [address] [place] [phone] PCP - General Family Medicine 04/16/23 02/10/24 [facility] [facility] [address] [place] [phone] PCP - General Family Medicine 02/11/24 documented as of this encounter
--- OUTSIDE RECORDS SUMMARY | 2024-07-20 13:37 | XMS_ITS | Encounter Summary ---
Author Organization [employer] Address [address] [place] [address] [address], [place] [address] Care Team Providers Care Stewardess Supervisor Name Role Phone Brandi Khalil [facility] Primary Care Provider [phone] Reason for Visit * Reason Comments sick visit Encounter Details Date Type Department Care Team ([facility] Contact Info) Description 07/20/2024 11:30 AM EST Office Visit [facility] [address] [place] [address] [facility] [address] [place] [address] Palpitations (Primary Dx) Social History Tobacco Use Types Packs/Day Years [...] PM EST documented as of this encounter Last Filed Vital Signs Vital Sign Reading Time Taken Comments Blood Pressure 120/67 07/20/2024 11:43 AM EST Pulse 65 07/20/2024 11:43 AM EST Temperature 36.3 ??C (97.3 ??F) 07/20/2024 11:[address] Respiratory Rate 16 07/20/2024 11:43 AM EST Oxygen Saturation - - Inhaled Oxygen Concentration - - Weight 110 kg (243 lb 4 oz) 07/20/2024 11:43 AM EST Height 162.6 cm (5' 4 ) 07/20/2024 11:43 AM EST Body Mass Index 41.75 07/20/2024 11:43 AM EST documented in this encounter Plan of Treatment Upcoming Encounters Date Type Department Care Team (Late st Contact Info) Description 08/07/2024 1:00 PM EST Office Visit [facility] [address] [place] [address] [facility] [address] [place] [address] Scheduled Orders Name Type Priority Associated Diagnoses Orde r Schedule TSH W/Reflex to FT4 Lab Routine Palpitations Expected: 07/20/2024 (Approximate), Expires: 07/20/2025 Basic Metabolic Panel Lab Routine Palpitations Expected: 07/20/2024 (Approximate), Expires: 07/20/2025 documented as of this encounter Visit Diagnoses Diagnosis Palpitations- Primary documented in this encounter Additional Health Concerns Assessment Noted Time PHQ-9 Depression Total Score: 0 06/26/19 25 1:24 PM EST documented as of this encounter Care Teams Stewardess Supervisor Relationship Specialty Start Date End Date Brandi Khalil FNP [address] [place] [phone] PCP - General Family Medicine 02/11/24 documented as of this encounter
--- OUTSIDE RECORDS SUMMARY | 2024-07-20 13:37 | XMS_ITS | Encounter Summary ---
Author Organization [employer] Address [address] [place] [address] 7[address] [place] [address] Care Team Providers Care National Sales Manager Name Role Phone China Santos MD Primary Care Provider + Herminia Taylor Primary Care Provider [phone] [place] Brandi AIR DRILL OPERATOR Primary Care Provider [phone] Encounter Details Date Type Department Care Team (Late st Contact Info) Description 07/24/2022 Orders Only [facility] MEDICINE [address] [place] [address] Herminia Taylor FNP [address] [place], [place] [phone] Other iron deficiency anemia (Primary Dx); Vitamin D insufficiency Social History Tobacco Use Types Packs/Day Years [...] Orientation Straight 07/20/2022 1: 44 PM EST COVID-19 Exposure Response Date Recorded In the last 10 days, have yo u been in contact with someone who was confirmed or suspected to have Coronavirus/COVID-19? No / Unsure 07/20/2022 1:43 PM EST documented as of this encounter Plan of Treatment Upcoming Encounters Date Type Department Care Team (Late st Contact Info) Description 08/07/2024 1:00 PM EST Office Visit [facility] MED[facility] [address] [place] [address] Brandi Khalil FNP [address] [place] [address] documented as of this encounter Procedures Procedure Name Priority Date/Time Associated Diagnosis Comments COVID-19 ID NOW (RAMIREZ) Routine 08/01/2022 7:15 PM EST Other iron deficiency anemia CBC WITH AUTO DIFFERENTIAL Routine 08/01/2022 7:15 PM EST Other iron deficiency anemia HCG, TOTAL, QN Routine 08/01/2022 7:15 PM EST Other iron deficiency anemia MAGNESIUM Routine 08/01/2022 7:15 PM EST Other iron deficiency anemia HEPATIC FUNCTION PANEL Routine 08/01/2022 7:15 PM EST Other iron deficiency anemia BASIC METABOLIC PANEL Routine 08/01/2022 7:15 PM EST Other iron deficiency anemia documented in this encounter Results * HCG, Total, Quantitative (08/01/2022 7:15 PM EST) HCG Quantitative <2 mIU/mL [facility] Comment:Weeks post LMP Appro ximate hCG(Last Menstrual Period) Range (mIU/ml)3 - 4 weeks 9 - 1304 - 5 weeks 75 - 2,6005 - 6 weeks 850 - 20,8006 - 7 weeks 4000 - 100,2007 - 12 weeks 11,500 - 289,74196 - 16 weeks 18,300 - 137,97477 - 29 weeks (2nd trimester) 1,400 - 53,85651 - 41 weeks (3rd trimester) 940 - 60,000The Ramirez B- hCG assay is used for the early detection ofpregnancy; it cannot be used to diagnose any conditionunrelated to . If a B-hCG level is not supportedby the clinical evidence, results should be confirmed by analternative method (qualitative urine hCG, for example). 08/01/2022 7:15 PM EST 08/01/2022 7:19 PM EST [facility] External Provider LAB BLO OD ORDERABLES Final Result Performing Organization Address [facility] de Phone Number [facility] [address] [place] [phone] * Magnesium (08/01/2022 7:15 PM EST) Magnesium 2.0 1.6 - 2.6 mg/dL [facility] 08/01/2022 7:15 PM EST 08/01/2022 7:19 PM EST [facility] External Provider LAB BLO OD ORDERABLES Final Result Performing Organization Address [facility] de Phone Number [facility] [address] [place] [phone] * (ABNORMAL) Basic Metabolic Panel (08/01/2022 7:15 PM EST) Sodium 140 135 - 145 mmol/L [facility] Potassium 4.1 3.3 - 5.1 mmol/L [facility] Chloride 107 96 - 108 mmol/L [facility] Carbon Dioxide 26 22 - 29 mmol/L [facility] Anion Gap 11(L) 12 - 20 [facility] Urea Nitrogen (BUN) 9 9 - 16 mg/dL [facility] Creatinine, Serum 0.65 0.5 - 1.4 mg/dL [facility] Creatinine Clr Calc Pharmacy 138.0 [facility] Comment:Provided height and weight: 160.02 cm,92.533 kg.eGFR (calculated from the MDRD study equation) and eCrCl(calculated from the Cockcroft-Gault equation) are based ondifferent parameters and may not yield comparable results.If eCrCl result is absurd, please check patient'sheight/weight. Estimated Glomerular Filt Rate >60 [facility] Comment:NOTE: For -Am erican individuals, multiply the result by 1.210.Chronic Kidney Disease: Estimated GFR < 60 mL/min/1.64g5Korqrc Kidney Disease: Estimated GFR < 15 mL/min/1.73m2 Glucose 107 60 - 115 mg/dL [facility] Calcium 8.8 8.4 - 10.2 mg/dL [facility] 08/01/2022 7:15 PM EST 08/01/2022 7:19 PM EST [facility] External Provider LAB BLO OD ORDERABLES Final Result Performing Organization Address [facility] Co de Phone Number [facility] [address] [place] [phone] * Hepatic Function Panel (08/01/2022 7:15 PM EST) Bilirubin, Total 0.4 0.0 - 1.0 mg/dL [facility] Bilirubin, Direct <0.2 0.0 - 0.5 mg/dL [facility] Aspartate Amino Transferase 11 5 - 31 U/L [facility] Alanine Aminotransferase 14 0 - 31 U/L [facility] Total Protein 7.6 6.5 - 8.0 g/dL [facility] Albumin Level 4.2 3.5 - 5.0 g/dL [facility] Alkaline Phosphatase 83 39 - 117 U/L [facility] 08/01/2022 7:15 PM EST 08/01/2022 7:19 PM EST [facility] External Provider LAB BLO OD ORDERABLES Final Result Performing Organization Address [facility] Co de Phone Number [facility] [address] [place] [phone] * (ABNORMAL) COVID-19 ID NOW (RAMIREZ) (08/01/2022 7:15 PM EST) IDNOW SERIAL# [id number] [facility] COVID-19 TEST Positive (A) Negative [facility] COVID-19 NOTE See Note [facility] Comment: Results are for the identification of SARS-CoV2 RNA. TheSARS-CoV2 RNA is generally detectable in respiratory samplesduring the acute phase of infection. Positive results areindicative of the presence of SARS-CoV-2 RNA; clinicalcorrelation with patient history and other diagnosticinformation is necessary to determine patient infectionstatus. Positive results do not rule out bacterial infectionor co- infection with other viruses.Testing facilities within the [facility] and itsterritories are required to report all positive results tothe appropriate public health authorities.Negative results should be treated as presumptive and, ifinconsistent with clinical signs and symptoms or necessaryfor patient management, should be tested with differentauthorized or cleared molecular tests. Negative results donot preclude SARS-CoV2 RNA infection and should not be usedas the sole basis for patient management decisions. Negativeresults should be considered in the context of a patient'srecent exposures, history and the presence of clinical signsand symptoms consistent with COVID-19.This test has been authorized by the FDA under an EmergencyUse Authorization (EUA) for use by authorized laboratories.Testing performed on the Medxnote ID NOW utilizing NAAT. 08/01/2022 7:15 PM EST 08/01/2022 7:25 PM EST us [facility] Exter nal Provider LAB MOLECULAR DIAGNOSTICS ORDERABLES Final Result [facility] [address] [place] [phone] * (ABNORMAL) CBC auto differential (08/01/2022 7:15 PM EST) White Blood Count 7.9 4.8 - 10.8 X10*3/uL [facility] Red Blood Count 3.95(L) 4.20 - 5.50 X10*6/uL [facility] Hemoglobin 10.3(L) 12.0 - 16.0 g/dl [facility] Hematocrit 32.9(L) 37.0 - 47.0 % [facility] Mean Corpuscular Volume 83.3 80.0 - 98.0 fL [facility] Mean Corpuscular Hemoglobin 26.1(L) 27.0 - 33.0 pg [facility] Mean Corpuscular HGB Conc 31.3 31.0 - 35.0 g/dl [facility] Red Cell Distribution Width 13.3 11.0 - 16.0 % [facility] Platelet Count 304 160 - 400 X10*3/uL [facility] Mean Platelet Volume 9.1(L) 9.4 - 12.3 fL [facility] Neutrophils Percent Auto 59.0 45 - 73 % [facility] Imm Gran Pct Auto 0.3 0.0 - 0.4 % [facility] Lymphocytes Percent Auto 33.4 20 - 40 % [facility] Monocytes Percent Auto 5.4 2 - 11 % [facility] Eosinophils Percent Auto 1.5 0 - 4 % [facility] Basophils Percent Auto 0.4 0 - 2 % [facility] NRBC Pct Auto 0.0 0.0 - 0.2 /100WBC [facility] Neutrophils Absolute Auto 4.6 2.0 - 8.3 x10*3/uL [facility] Imm Gran Abs Auto 0.02 0.00 - 0.03 X10*3/uL [facility] Lymphocytes Absolute Auto 2.6 1.2 - 4.9 X10*3/uL [facility] Monocytes Absolute Auto 0.4 0.1 - 1.2 X10*3/uL [facility] Eosinophils Absolute Auto 0.1 0.0 - 0.4 X10*3/uL [facility] Basophils Absolute Auto 0.0 0.0 - 0.2 X10*3/uL [facility] NRBC Abs Auto 0.000 0.0 - 0.012 X10*3/uL [facility] 08/01/2022 7:15 PM EST 08/01/2022 7:19 PM EST us [facility] External Provider LAB BLO OD ORDERABLES Final Result [facility] [address] [place] [phone] documented in this encounter Visit Diagnoses Diagnosis Other iron deficiency anemia- Primary Vitamin D insufficiency documented in this encounter Additional Health Concerns Assessment Noted Time PHQ-9 Depression Total Score: 0 07/20/19 23 2:45 PM EST documented as of this encounter Care Teams National Sales Manager Relationship Specialty Start Date End Date China Santos MD [address] [place] [address] PCP - General Family Medicine 08/08/17 04/15/23 Herminia Taylor FNP [address] [place] [address] PCP - General Family Medicine 04/16/23 02/10/24 Brandi Khalil FNP [address] [place] [address] PCP - General Family Medicine 02/11/24 documented as of this encounter
--- OUTSIDE RECORDS SUMMARY | 2024-07-20 13:37 | XMS_ITS | Encounter Summary ---
Author Organization [employer] Address [address] [place] [address] 7[place], [place] [address] Care Team Providers Care Global Chief Creative Officer Name Role Phone Brandi Khalil Primary Care Provider [phone] Reason for Referral * Consultation (Routine) - Closed Specialty Diagnoses / Procedures Referred By Delmi caruso Referred To Contact Behavioral Health Diagnoses Anxiety Brandi Khalil FNP [address] [place] [address] Phone: tel: fax: Referral ID Status Reason Start Date Expiration Date V isits Requested Visits Authorized [id number] Closed Specialty Services Required 07/02/2024 07/02/2025 1 1 Reason for Visit * Reason Comments Follow-up Encounter Details Date Type Department Care Team (Late st Contact Info) Description 06/26/2024 1:15 PM EST Office Visit [facility] MEDICINE [address] [place], [place] [phone] Brandi Khalil FNP [address] [place] [address] Anxiety (Primary Dx); Dietary counseling; Exercise counseling; Class 3 severe obesity due to excess calories with body mass index (BMI) of 40.0 to 44.9 in adult, unspecified whether serious comorbidity present (CMS/[facility]) Social History Tobacco Use Types Packs/Day Years [...] Sign Reading Time Taken Comments Blood Pressure 128/78 06/26/2024 1:11 PM EST Pulse 85 06/26/2024 1:11 PM EST Temperature 36.6 ??C (97.8 ??F) 06/26/2024 1:11 PM ES T Respiratory Rate 20 06/26/2024 1:11 PM EST Oxygen Saturation 98% 06/26/2024 1:11 PM EST Inhaled Oxygen Concentration - - Weight 112 kg (247 lb 6.4 oz) 06/26/2024 1:11 PM EST Height 162.6 cm (5' 4 ) 06/26/2024 1:11 PM EST Body Mass Index 42.47 06/26/2024 1:11 PM EST documented in this encounter Progress Notes * Brandi [place], BOW MAKING MACHINE OPERATOR - 06/26/2024 1:15 PM EST Elba Looney is a 28 y.o. year old female patient who presents for weight management. - referral accepts Obesity History Lowest adult weight: 170 Highest adult weight: Current 247 History of Weight Loss Efforts Successful weight loss techniques attempted: intermittent fasting, Unsuccessful weight loss techniques attempted: NOne Circumstances associated with regain of weight: Increased stress/anxiety. Accepts referral. Current Exercise Habits treadmill 2x/week-45 minut walking Current Eating Habits Number of regular meals per day: unknown Number of snacking episodes per day: several Who shops for food? patient Who prepares food? patient Who eats with patient? patient Binge behavior?: no Purge behavior? no Anorexic behavior? no Eating precipitated by stress? yes - Other Potential Contributing Factors Use of alcohol: average 1 oer week, socially Use of medications that may cause weight gain none Psych History: anxiety Comorbidities: none Review of Systems Constitutional: Negative for fatigue, fever and unexpected weight change. Eyes: Negative for visual disturbance. Respiratory: Negative for apnea, chest tightness and shortness of breath. Cardiovascular: Negative for chest pain, palpitations and leg swelling. Neurological: Negative for dizziness, light-headedness and headaches. OBJECTIVE 07/20/2022 2:43 PM 05/05/2024 2:34 PM 06/26/2024 1:11 PM Vitals Systolic 105 128 128 Diastolic 59 78 78 Heart Rate 60 88 85 Temp 97.4 ??F (36.3 ??C) 97.8 ??F (36.6 ??C) Resp 14 16 20 Height (in) 5' 3.25 (1.607 m) 5' 4 (1.626 m) 5' 4 (1.626 m) Weight (lb) 210.13 246 247.4 BMI 36.93 kg/m2 42.23 kg/m2 42.47 kg/m2 BSA (m2) 2.06 m2 2.25 m2 2.25 m2 Visit Report Report Report Report Physical Exam Constitutional: General: She is not in acute distress. Appearance: Normal appearance. HENT: Head: Normocephalic and atraumatic. Right Ear: External ear normal. Left Ear: External ear normal. Nose: Nose normal. Mouth/Throat: Pharynx: Oropharyngeal exudate: topiramate. Eyes: Conjunctiva/sclera: Conjunctivae normal. Cardiovascular: Rate and Rhythm: Normal rate and regular rhythm. Heart sounds: Normal heart sounds. Pulmonary: Effort: Pulmonary effort is normal. Breath sounds: Normal breath sounds. Skin: General: Skin is warm and dry. Neurological: General: No focal deficit present. Mental Status: She is alert and oriented to person, place, and time. Psychiatric: Mood and Affect: Mood normal. Behavior: Behavior normal. ASSESSMENT/PLAN - Shared decision making with patient re treatment options - Reviewed indications for pharmacotherapy with patient, which is treatment for patient w/ obesity or a patient with a BMI > 27 w/ CV risk factors who have failed lifestyle modifications alone. These are always prescribed in combination with ongoing lifestyle modification - Will start patient on Phentermine/topamax. Discussed risks and side effects to include tachycardia, HTN, teratogenic, cognitive dysfuction, metabolic acidosis, constipation, dysgeusia. Denies hx ofpregnancy, hyperthyroidism, MAOI use or glaucoma. Denies hx of kidney stones. - Discussed calorie deficit, recommended reduction of 20-30% of maintenance calories; horizontal drill operator referral offered. Recommended to decrease soda and sugary beverage consumption. Recommended at least20 g per meal of protein to assist with satiety. Recommended at least 150 min/week of moderate intensity exercise. 1. Dietary counseling 2. Exercise counseling 3. Class 3 severe obesity due to excess calories with body mass index (BMI) of 40.0 to 44.9 in adult, unspecified whether serious comorbidity present (CMS/HCC) - phentermine 8 MG tablet; Take 1 tablet (8 mg) by mouth 3 times daily. Dispense: 84 tablet; Refill: 0 - topiramate (Topamax) 25 MG tablet; Take 1 tablet (25 mg) by mouth before evening meal. Dispense: 30 tablet; Refill: 11 documented in this encounter Plan of Treatment Upcoming Encounters Date Type Department Care Team ([facility] st Contact Info) Description 08/07/2024 1:00 PM EST Office Visit [facility] [address] [place] [address] [place] [address] Brandi KhalilRAJNI [address] [facility] [place] [address] Scheduled Referrals Name Type Priority Associated Diagnoses Order Schedule Referral to Behavioral Health Outpatient Referral Routine Anxiety Expected: 07/02/2024 (Approximate), Expires: 07/02/2025 documented as of this encounter Visit Diagnoses Diagnosis Anxiety- Primary Anxiety state, unspecified Dietary counseling Dietary surveillance and counseling Exercise counseling Class 3 severe obesity due to excess calories with body mass index (BMI) of 40.0 to 44.9 in adult, unspecified whether serious comorbidity present (CMS/HCC) documented in this encounter Additional Health Concerns Assessment Noted Time PHQ-9 Depression Total Score: 0 06/26/19 25 1:24 PM EST documented as of this encounter Care Teams Global Chief Creative Officer Relationship Specialty Start Date End Date Brandi Khalil RAJNI [address] [facility] [place] [address] PCP - General Family Medicine 02/11/24 documented as of this encounter
[2024-07-20 14:07] LABS: Anion Gap 10 (12-20); Blood Urea Nitrogen 12 mg/dL (9-16); Calcium 9.3 mg/dL (8.4-10.2); Carbon Dioxide 27 mmol/L (22-29); Chloride 107 mmol/L (96-108); Estimated Glomerular Filt Rate > 60; Glucose Random 80 mg/dL (60-115); Potassium 4.2 mmol/L (3.3-5.1); Sodium 140 mmol/L (135-145)
[2024-07-20 14:23] LABS: TSH reflex Free T4 0.78 uIU/mL (0.32-4.0)
== END 2024-07-20 12:39 | disposition home or self-care (01) ==
LOC: HO.HHCL 12:38
PROVIDERS: Nurse Practitioner Family; Visit Provider Registered Nurse
DX: D50.9 Iron deficiency anemia, unspecified (principal); R00.2 Palpitations
CPT/HCPCS: 36415; 80048; 84443; 85025

== ENCOUNTER → 2024-07-28 07:48 | Outpatient (REF) | payer MEDICAID, SELFPAY ==
--- OUTSIDE RECORDS SUMMARY | 2024-07-28 07:51 | XMS_ITS | Encounter Summary ---
Author Organization [employer] Address [address] [facility] [address] [place] [address] Care Team Providers Care Highway Patrol Pilot Name Role Phone Brandi Khalil SLICER MACHINE OPERATOR Primary Care Provider [phone] Encounter Details Date Type Department Care Team [...] Description 08/07/2024 1:00 PM EST Office Visit [facility] MED[facility]INE [address] [place] [address] Brandi Khalil FNP [address] [place] [address] documented as of this encounter Visit Diagnoses Not on filedocumented in this encounter Additional Health Concerns Assessment Noted Time PHQ-9 Depression Total Score: 0 06/26/19 25 1:24 PM EST documented as of this encounter Care Teams Highway Patrol Pilot Relationship Specialty Start Date End Date Brandi Khalil FNP [address] [place] [address] PCP - General Family Medicine 02/11/24 documented as of this encounter
--- OUTSIDE RECORDS SUMMARY | 2024-07-28 07:51 | XMS_ITS | Encounter Summary ---
Author Organization [employer] Address [address] [place] [address] [address] [address] Care Team Providers Care Biodiesel Product Manager Name Role Phone Simran Brandi [facility] Primary Care Provider [phone] Reason for Visit * Reason Onset Date Comments Nurse Triage 07/14/2024 Encounter Details Date Type Department Care Team ([facility] st Contact Info) Description 07/14/2024 Telephone [facility] [address] [place] [address] [place] [facility] [address] [place] [address] Nurse Triage Social History Tobacco Use Types [...] Reason: Getting worse Please contact pt at [phone]. documented in this encounter Plan of Treatment Upcoming Encounters Date Type Department Care Team (Late st Contact Info) Description 08/07/2024 1:00 PM EST Office Visit [facility] [address] [place] [address] Brandi Khalil FNP [address] [place] [address] documented as of this encounter Visit Diagnoses Not on filedocumented in this encounter Additional Health Concerns Assessment Noted Time PHQ-9 Depression Total Score: 0 06/26/19 25 1:24 PM EST documented as of this encounter Care Teams Biodiesel Product Manager Relationship Specialty Start Date End Date Brandi Khalil FNP [address] [place] [phone] PCP - General Family Medicine 02/11/24 documented as of this encounter
--- OUTSIDE RECORDS SUMMARY | 2024-07-28 07:51 | XMS_ITS | Encounter Summary ---
Author Organization [facility] Address [address] [place] [address] [address] [address] Care Team Providers Care Resourcing Consultant Name Role Phone Brandi Khalil Primary Care Provider [phone] Reason for Referral * Cardiology (Routine) - Authorized Specialty Diagnoses / Procedures Referred By Delmi t Referred To Contact Cardiology Diagnoses Palpitations Procedures Holter monitor - 24 hour Brandi Khalil FNP [address] [place] [address] Phone: tel: fax: [address] Phone: tel: fax: Referral ID Status Reason Start Date Expiration Date V isits Requested Visits Authorized [id number] Authorized 07/21/2024 07/21/2025 1 1 Reason for Visit * Reason Comments sick visit Encounter Details Date Type Department Care Team (Late st Contact Info) Description 07/20/2024 11:30 AM EST Office Visit [facility] [address] [place], [place] [phone] Brandi Khalil FNP [address] [place] [address] Palpitations (Primary Dx) Social History Tobacco Use [...] 11:43 AM EST documented in this encounter Progress Notes * Brandi Brutus, REBRANDER - 07/20/2024 11:30 AM EST SUBJECTIVE: Elba Looney is a 29 y.o. year old female who presents for evaluation of palpitations . Denies recent illness, injury, or hospitalization. HPI - Pt reports new onset palpitations x 3 weeks since starting topiramate for weight management. Symptoms occur daily and last for several seconds. Denies associated chest pain, shortness of breath, dizziness, weakness. Patient with no other known cardiac history - She was prescribed phentermine as part of weight management plan however she was awaiting prior authorization for phentermine and so she did not start taking it. -She denies excessive caffeine use - No ETOH, TUD, EYAD Social History Social History Narrative Not on file Patient Active Problem List Diagnosis Cervical intraepithelial neoplasia grade 1 Obesity with body mass index 30 or greater Class 2 obesity Positive reaction to tuberculin skin test Tinea versicolor Vitamin D deficiency Health care maintenance Iron deficiency anemia Anxiety Onychomycosis Dietary counseling Exercise counseling No past surgical history on file. Family History Problem Relation Name Age of Onset Diabetes Mother Asthma Brother Review of Systems Constitutional: Negative for fatigue, fever and unexpected weight change. Eyes: Negative for visual disturbance. Respiratory: Negative for apnea, chest tightness and shortness of breath. Cardiovascular: Positive for palpitations. Negative for chest pain and leg swelling. Neurological: Negative for dizziness, light-headedness and headaches. OBJECTIVE: Vitals: 07/20/24 1143 BP: 120/67 Pulse: 65 Resp: 16 Temp: 97.3 ??F (36.3 ??C) Physical Exam Constitutional: General: She is not in acute distress. Appearance: Normal appearance. HENT: Head: Normocephalic and atraumatic. Right Ear: External ear normal. Left Ear: External ear normal. Nose: Nose normal. Eyes: Conjunctiva/sclera: Conjunctivae normal. Cardiovascular: Rate and [...] Affect: Mood normal. Behavior: Behavior normal. ASSESSMENT/PLAN 1. Palpitations (Primary) -EKG in office did capture a PVC, otherwise unremarkable - Patient will stop topiramate as she noticed symptoms with medication start although this is not atypical side effect -Patient advised to avoid caffeine and alcohol, increase hydration, maintain good sleep hygiene - Will check labs and Holter monitor - ED precautions advised - Follow-up pending labs and Holter monitor results - TSH W/Reflex to FT4; Future - Basic Metabolic Panel; Future - TSH W/Reflex to FT4 - Basic Metabolic Panel - Holter monitor - 24 hour; Future - Holter monitor - 24 hour - ECG 12 lead Follow Up: Pending results Current Outpatient Medications on File Prior to Visit Medication Sig Dispense Refill ciclopirox (Ciclodan) 8 % solution Apply topically at bedtime. 10 mL 1 terbinafine (LamISIL AT) 1 % cream Apply topically 2 times daily. 15 g 0 topiramate (Topamax) 25 MG tablet Take 1 tablet (25 mg) by mouth before evening meal. 30 tablet 11 cholecalciferol (Vitamin D3) 25 MCG (1000 UT) tablet TAKE 1 TABLET (25 MCG) BY MOUTH IN THE AUETGEV74 tablet 0 phentermine 8 MG tablet Take 1 tablet (8 mg) by mouth 3 times daily. 84 tablet 0 No current facility-administered medications on file prior to visit. documented in this encounter Plan of Treatment Upcoming Encounters Date Type Department Care Team (Late st Contact Info) Description 08/07/2024 1:00 PM EST Office Visit [facility] [address] [place] [address] Brandi Khalli FNP [address] [place] [address] Pending Results Name Type Priority Associated Diagnoses Date /Time ECG 12 lead ECG Routine Palpitations 07/21/2024 11:25 PM EST Scheduled Orders Name Type Priority Associated Diagnoses Orde r Schedule Holter monitor - 24 hour Cardiac Services Routine Palpitations Expected: 07/21/2024 (Approximate), Expires: 07/21/2026 documented as of this encounter Procedures Procedure Name Priority Date/Time Associated Diagnosis Comments TSH W/REFLEX TO FT4 Routine 07/20/2024 1 2:41 PM EST Palpitations BASIC METABOLIC PANEL Routine 07/20/2024 12:41 PM EST Palpitations documented in this encounter Results * (ABNORMAL) Basic Metabolic Panel (07/20/2024 12:41 PM EST) Sodium 140 135 - 145 mmol/L [facility] Potassium 4.2 3.3 - 5.1 mmol/L [facility] Chloride 107 96 - 108 mmol/L [facility] Carbon Dioxide 27 22 - 29 mmol/L [facility] Anion Gap 10(L) 12 - 20 [facility] Urea Nitrogen (BUN) 12 9 - 16 mg/dL [facility] Creatinine, Serum 0.65 0.5 - 1.4 mg/dL [facility] Estimated Glomerular Filt Rate >60 [facility] Comment:Chronic Kidney Disea se: Estimated GFR < 60 mL/min/1.24m6Fsyhro Kidney Disease: Estimated GFR < 15 mL/min/1.73m2 Glucose 80 60 - 115 mg/dL [facility] Calcium 9.3 8.4 - 10.2 mg/dL [facility] Blood Venous blood specimen / Unknown 07/20/2024 12:41 PM EST 07/20/2024 1:14 PM EST [facility] REBRANDER LAB BLOOD ORDERABLES Final Re sult [facility] [address] [place] [phone] * TSH W/Reflex to FT4 (07/20/2024 12:41 PM EST) TSH reflex Free T4 0.78 0.32 - 4.0 uIU/mL [facility] Blood Venous blood specimen / Unknown 07/20/2024 12:41 PM EST 07/20/2024 1:14 PM EST [facility] LAB BLOOD ORDERABLES Final Re sult [facility] [address] [place] [address] [phone] documented in this encounter Visit Diagnoses Diagnosis Palpitations- Primary documented in this encounter Additional Health Concerns Assessment Noted Time PHQ-9 Depression Total Score: 0 06/26/19 25 1:24 PM EST documented as of this encounter Care Teams Resourcing Consultant Relationship Specialty Start Date End Date Brandi Khalil FNP [address] [place] [phone] PCP - General Family Medicine 02/11/24 documented as of this encounter
--- OUTSIDE RECORDS SUMMARY | 2024-07-28 07:51 | XMS_ITS | Encounter Summary ---
Author Organization [facility] Address [address] [place] [address] [address] [place] [address] Care Team Providers Care Book Agent Name Role Phone China Santos MD Primary Care Provider + Herminia Taylor Primary Care Provider [phone] [place] Brandi DENTAL CREAM MAKER Primary Care Provider [phone] Encounter Details Date Type Department Care Team (Late st Contact Info) Description 07/24/2022 Orders Only [facility] [address] [place] [address] Herminia Taylor FNP [address] [place], [place] [phone] Other iron deficiency anemia (Primary Dx); Vitamin [...] Description 08/07/2024 1:00 PM EST Office Visit [facility] [address] [place] [address] Brandi Khalil FNP [address] [place] [address] documented as of this encounter Procedures Procedure [...] 7:15 PM EST) HCG Quantitative <2 mIU/mL [facility] Comment:Weeks post LMP Appro ximate hCG(Last Menstrual Period) Range (mIU/ml)3 - 4 weeks 9 - 1304 - 5 weeks 75 - 2,6005 - 6 weeks 850 - 20,8006 - 7 weeks 4000 - 100,2007 - 12 weeks 11,500 - 289,33336 - 16 weeks 18,300 - 137,08781 - 29 weeks (2nd trimester) 1,400 - 53,43138 - 41 weeks (3rd trimester) 940 - 60,000The Ramirez B- hCG assay is used for the early detection ofpregnancy; it cannot be used to diagnose any conditionunrelated to . If a B-hCG level is not supportedby the clinical evidence, results should be confirmed by analternative method (qualitative urine hCG, for example). 08/01/2022 7:15 PM EST 08/01/2022 7:19 PM EST [facility] External Provider LAB BLO OD ORDERABLES Final Result Performing Organization Address [facility] de Phone Number [facility] [address] [place] [phone] * Magnesium (08/01/2022 7:15 PM EST) Magnesium 2.0 1.6 - 2.6 mg/dL [facility] 08/01/2022 7:15 PM EST 08/01/2022 7:19 PM EST [facility] External Provider LAB BLO OD ORDERABLES Final Result Performing Organization Address [facility] de Phone Number [facility] [address] [place] [phone] * (ABNORMAL) Basic Metabolic Panel (08/01/2022 7:15 PM EST) Sodium 140 135 - 145 mmol/L [facility] Potassium 4.1 3.3 - 5.1 mmol/L [facility] Chloride 107 96 - 108 mmol/L [facility] Carbon Dioxide 26 22 - 29 mmol/L [facility] Anion Gap 11(L) 12 - 20 [facility] Urea Nitrogen (BUN) 9 9 - 16 mg/dL [facility] Creatinine, Serum 0.65 0.5 - 1.4 mg/dL [facility] Creatinine Clr Calc Pharmacy 138.0 [facility] Comment:Provided height and weight: 160.02 cm,92.533 kg.eGFR (calculated from the MDRD study equation) and eCrCl(calculated from the Cockcroft-Gault equation) are based ondifferent parameters and may not yield comparable results.If eCrCl result is absurd, please check patient'sheight/weight. Estimated Glomerular Filt Rate >60 [facility] Comment:NOTE: For -Am erican individuals, multiply the result by 1.210.Chronic Kidney Disease: Estimated GFR < 60 mL/min/1.68o7Dcejgk Kidney Disease: Estimated GFR < 15 mL/min/1.73m2 Glucose 107 60 - 115 mg/dL [facility] Calcium 8.8 8.4 - 10.2 mg/dL [facility] 08/01/2022 7:15 PM EST 08/01/2022 7:19 PM EST [facility] External Provider LAB BLO OD ORDERABLES Final Result Performing Organization Address [facility] Co de Phone Number [facility] [address] [place] [phone] * Hepatic Function Panel (08/01/2022 7:15 PM EST) Bilirubin, Total 0.4 0.0 - 1.0 mg/dL [facility] Bilirubin, Direct <0.2 0.0 - 0.5 mg/dL [facility] Aspartate Amino Transferase 11 5 - 31 U/L [facility] Alanine Aminotransferase 14 0 - 31 U/L [facility] Total Protein 7.6 6.5 - 8.0 g/dL [facility] Albumin Level 4.2 3.5 - 5.0 g/dL [facility] Alkaline Phosphatase 83 39 - 117 U/L [facility] 08/01/2022 7:15 PM EST 08/01/2022 7:19 PM EST [facility] External Provider LAB BLO OD ORDERABLES Final Result Performing Organization Address [facility] Co de Phone Number [facility] [address] [place] [phone] * (ABNORMAL) COVID-19 ID NOW (RAMIREZ) (08/01/2022 7:15 PM EST) IDNOW SERIAL# [id number] [facility] COVID-19 TEST Positive (A) Negative [facility] COVID-19 NOTE See Note [facility] Comment: Results are for the identification of SARS-CoV2 RNA. TheSARS-CoV2 RNA is generally detectable in respiratory samplesduring the acute phase of infection. Positive results areindicative of the presence of SARS-CoV-2 RNA; clinicalcorrelation with patient history and other diagnosticinformation is necessary to determine patient infectionstatus. Positive results do not rule out bacterial infectionor co- infection with other viruses.Testing facilities within the [facility] and itsterritories are required to report all [...] use by authorized laboratories.Testing performed on the [employer] ID NOW utilizing NAAT. 08/01/2022 7:15 PM EST 08/01/2022 7:25 PM EST us [facility] Exter nal Provider LAB MOLECULAR DIAGNOSTICS ORDERABLES Final Result [facility] [address] [place] [phone] * (ABNORMAL) CBC auto differential (08/01/2022 7:15 PM EST) White Blood Count 7.9 4.8 - 10.8 X10*3/uL [facility] Red Blood Count 3.95(L) 4.20 - 5.50 X10*6/uL [facility] Hemoglobin 10.3(L) 12.0 - 16.0 g/dl [facility] Hematocrit 32.9(L) 37.0 - 47.0 % [facility] Mean Corpuscular Volume 83.3 80.0 - 98.0 fL [facility] Mean Corpuscular Hemoglobin 26.1(L) 27.0 - 33.0 pg [facility] Mean Corpuscular HGB Conc 31.3 31.0 - 35.0 g/dl [facility] Red Cell Distribution Width 13.3 11.0 - 16.0 % [facility] Platelet Count 304 160 - 400 X10*3/uL [facility] Mean Platelet Volume 9.1(L) 9.4 - 12.3 fL [facility] Neutrophils Percent Auto 59.0 45 - 73 % [facility] Imm Gran Pct Auto 0.3 0.0 - 0.4 % [facility] Lymphocytes Percent Auto 33.4 20 - 40 % [facility] Monocytes Percent Auto 5.4 2 - 11 % [facility] Eosinophils Percent Auto 1.5 0 - 4 % [facility] Basophils Percent Auto 0.4 0 - 2 % [facility] NRBC Pct Auto 0.0 0.0 - 0.2 /100WBC [facility] Neutrophils Absolute Auto 4.6 2.0 - 8.3 x10*3/uL [facility] Imm Gran Abs Auto 0.02 0.00 - 0.03 X10*3/uL [facility] Lymphocytes Absolute Auto 2.6 1.2 - 4.9 X10*3/uL [facility] Monocytes Absolute Auto 0.4 0.1 - 1.2 X10*3/uL [facility] Eosinophils Absolute Auto 0.1 0.0 - 0.4 X10*3/uL [facility] Basophils Absolute Auto 0.0 0.0 - 0.2 X10*3/uL [facility] NRBC Abs Auto 0.000 0.0 - 0.012 X10*3/uL [facility] 08/01/2022 7:15 PM EST 08/01/2022 7:19 PM EST us [facility] External Provider LAB BLO OD ORDERABLES Final Result [facility] [address] [place] [phone] documented in this encounter Visit Diagnoses Diagnosis Other iron deficiency anemia- Primary Vitamin D insufficiency documented in this encounter Additional Health Concerns Assessment Noted Time PHQ-9 Depression Total Score: 0 07/20/19 23 2:45 PM EST documented as of this encounter Care Teams Book Agent Relationship Specialty Start Date End Date China Santos MD [address] [place] [address] PCP - General Family Medicine 08/08/17 04/15/23 Herminia Taylor FNP [address] [place] [address] PCP - General Family Medicine 04/16/23 02/10/24 Brandi Khalil FNP [address] [place] [address] PCP - General Family Medicine 02/11/24 documented as of this encounter
--- OUTSIDE RECORDS SUMMARY | 2024-07-28 07:51 | XMS_ITS | Clinical Summary ---
Author Organization [employer] Address [address] [place] [address] 7 [place] [address] Care Team Providers Care Outsole Splicer Name Role Phone Brandi Khalil RABBLE FURNACE TENDER Primary Care Provider [phone] Allergies No known active allergies Medications * [...] Description 07/20/2024 11:30 AM EST Office Visit [facility] [place] [address] Brandi Khalil FNP Palpitations (Primary Dx) 07/20/2024 Travel 07/14/[address] [address] Brandi Khalil FNP Nurse Triage 06/26/2024 1:15 PM EST Office Visit [facility] [place] [address] Brandi Khalil FNP Anxiety (Primary Dx); Dietary counseling; Exercise counseling; Class 3 severe obesity due to excess calories with body mass index (BMI) of 40.0 to 44.9 in adult, unspecified whether serious comorbidity present ([facility]) 06/26/2024 Travel 05/06/[address] [address] Michelle aSntos RN 05/06/2024 Orders Only [address] [address] Jade Hudson NP Onychomycosis (Primary Dx) 05/06/[address] [address] Michelle Santos RN 05/05/2024 2:45 PM EST Office Visit [address] [address] Jade Hudson NP Obesity with body mass index 30 or greater (Primary Dx); Health care maintenance; Iron deficiency anemia, unspecified iron deficiency anemia type; Anxiety; Onychomycosis; Dietary counseling; Exercise counseling 05/04/[address] [address] Hellen Modi [place] Chart Prep 04/28/2024 Patient Outreach [facility] [address] [place], [place] [phone] Brandi Khalil FNP Pre-visit Planning (SDOH negative. [...] 1:00 PM EST Office Visit [facility] [address] [place] [address] [facility] [address] [place] [address] Health Maintenance Due Date Last Done Comments Family Planning (PISQ) 2008 Pap Smear 10/12/2023 10/11/2020, 03/0 10/2019, 05/20/2019 COVID-19 Vaccine ( season) 2024 10/04/2021, 09/06/2021 Influenza Vaccine (#1) 2024 , 03/31/2018, 05/08/2017 SDOH Screening 04/28/2025 04/28/2024 Alcohol/Substance Use Screening 05/05/2025 05/05/2024 Depression Screening 06/26/2025 06/26/2024, 06/26/19 Tobacco Screening 07/21/2025 07/21/2024 Cervical Cancer Screening 10/11/2025 HPV/Cotest 10/11/2025 10/11/2020, [...] Procedure Name Priority Date/Time Associated Diagnosis Comments BASIC METABOLIC PANEL Routine 07/20/2024 12:41 PM EST Palpitations TSH W/REFLEX TO FT4 Routine 07/20/2024 1 2:41 PM EST Palpitations CBC WITH AUTO DIFFERENTIAL Routine 07/20/2024 12:41 [...] Recently Relevant to Health Maintenance Results * TSH W/Reflex to FT4 (07/20/2024 12:41 PM EST) Only the most recent of2 resultswithin the time period is included. TSH reflex Free T4 0.78 0.32 - 4.0 uIU/mL [facility] Blood Venous blood specimen / Unknown 07/20/2024 12:41 PM EST 07/20/2024 1:14 PM EST [facility] LAB BLOOD ORDERABLES Final Re sult [facility] [address] [place] [address] [phone] * (ABNORMAL) CBC auto differential (07/20/2024 12:41 PM EST) Only the most recent of2 resultswithin the time period is included. White Blood Count 9.5 4.8 - 10.8 X10*3/uL [facility] Red Blood Count 4.05(L) 4.20 - 5.50 X10*6/uL [facility] Hemoglobin 10.6(L) 12.0 - 16.0 g/dl [facility] Hematocrit 34.0(L) 37.0 - 47.0 % [facility] Mean Corpuscular Volume 84.0 80.0 - 98.0 fL [facility] Mean Corpuscular Hemoglobin 26.2(L) 27.0 - 33.0 pg [facility] Mean Corpuscular HGB Conc 31.2 31.0 - 35.0 g/dl [facility] Red Cell Distribution Width 14.1 11.0 - 16.0 % [facility] Platelet Count 334 160 - 400 X10*3/uL [facility] Mean Platelet Volume 9.7 9.4 - 12.3 fL [facility] Neutrophils Percent Auto 57.3 45 - 73 % [facility] Imm Gran Pct Auto 0.3 0.0 - 0.4 % [facility] Lymphocytes Percent Auto 36.1 20 - 40 % [facility] Monocytes Percent Auto 4.2 2 - 11 % [facility] Eosinophils Percent Auto 1.6 0 - 4 % [facility] Basophils Percent Auto 0.5 0 - 2 % [facility] NRBC Pct Auto 0.0 0.0 - 0.2 /100WBC [facility] Neutrophils Absolute Auto 5.5 2.0 - 8.3 x10*3/uL [facility] Imm Gran Abs Auto 0.03 0.00 - 0.03 X10*3/uL [facility] Lymphocytes Absolute Auto 3.4 1.2 - 4.9 X10*3/uL [facility] Monocytes Absolute Auto 0.4 0.1 - 1.2 X10*3/uL [facility] Eosinophils Absolute Auto 0.2 0.0 - 0.4 X10*3/uL [facility] Basophils Absolute Auto 0.1 0.0 - 0.2 X10*3/uL [facility] NRBC Abs Auto 0.000 0.0 - 0.012 X10*3/uL [facility] Blood Venous blood specimen / Unknown 07/20/2024 12:41 PM EST 07/20/2024 1:14 PM EST us Jade Hudson NP LAB BLOOD ORDERABLES Final Resul t [facility] [address] [place] [address] [phone] * (ABNORMAL) Basic Metabolic Panel (07/20/2024 12:41 PM EST) Sodium 140 135 - 145 mmol/L [facility] Potassium 4.2 3.3 - 5.1 mmol/L [facility] Chloride 107 96 - 108 mmol/L [facility] Carbon Dioxide 27 22 - 29 mmol/L [facility] Anion Gap 10(L) 12 - 20 [facility] Urea Nitrogen (BUN) 12 9 - 16 mg/dL [facility] Creatinine, Serum 0.65 0.5 - 1.4 mg/dL [facility] Estimated Glomerular Filt Rate >60 [facility] Comment:Chronic Kidney Disea se: Estimated GFR < 60 mL/min/[id number] Kidney Disease: Estimated GFR < 15 mL/min/1.73m2 Glucose 80 60 - 115 mg/dL [facility] Calcium 9.3 8.4 - 10.2 mg/dL [facility] Blood Venous blood specimen / Unknown 07/20/2024 12:41 PM EST 07/20/2024 1:14 PM EST [facility] RABBLE FURNACE TENDER LAB BLOOD ORDERABLES Final Re sult [facility] [address] [place] [phone] * Hemoglobin A1c (05/05/2024 3:36 PM EST) Hemoglobin A1c 5.2 <6.0 % [facility] Comment:Hemoglobin A1C Refer ence Range Adults: 4.8 - 6.0 % Non diabetic: < 6.0 % Goal: < 7.0 %Additional Action Suggested: > 8.0 %Note: Hemoglobin A1c results are invalid for patients with abnormal amounts of HbF. Blood transfusions may impact the HbA1c concentration in the patient sample. Estimated Average Glucose 103 mg/dL [facility] Comment:eAG = Estimated ave rage glucose which is %A1C expressed asaverage glucose, using the formula of the [id number]-[id number] Glucose study (ADAG), Diabetes Care, Vol.31,#8,Jan. 2007 Blood Venous blood specimen / Unknown 05/05/2024 3:36 PM EST 05/05/2024 4:09 PM EST Jade Hudson CURING BIN OPERATOR LAB BLOOD ORDERABLES Final Resul t Performing Organization Address City/[facility]/ZIP Co de Phone Number [facility] [address] [place] [address] [phone] * Vitamin B12/Folate, Serum Panel (05/05/2024 3:26 PM EST) Vitamin B12 374 200 - 900 pg/mL [facility] Comment:NORMAL 200-900 PG/ML INDETERMINATE 160-199 PG/ML DEFICIENT < 160 PG/ML Folate 14.4 > or = 4.0 ng/mL [facility] Comment:Reference Values:> o r = 4.0 ng/mL< 4.0 ng/mL suggests folate deficiency Methotrexate, aminopterin and folinic acid(leucovorin) are chemotherapeutic agents whose molecularstructures are similar to folate; therefore, the Architectfolate assay cannot be used for patients using these drugs. Blood Venous blood specimen / Unknown 05/05/2024 3:26 PM EST 05/05/2024 4:09 PM EST Jade Hudson NP LAB BLOOD ORDERABLES Final Resul t Performing Organization Address [facility] Co de Phone Number [facility] [address] [place] [phone] * Hepatitis C Antibody with Reflex to HCV, RNA, Quantitative, Real-Time PCR (05/05/2024 3:26 PM EST) Hepatitis C Antibody Nonreactive Nonreactive [facility] Comment:Antibodies to HCV no t detected; does not exclude early acuteHCV infection. Blood Venous blood specimen / Unknown 05/05/2024 3:26 PM EST 05/05/2024 4:09 PM EST Jade Hudson NP LAB BLOOD ORDERABLES Final Resul t Performing Organization Address [facility] Co de Phone Number [facility] [address] [place] [phone] * Iron And Total Iron Binding Capacity (05/05/2024 3:26 PM EST) Iron 43 30 - 160 mcg/dL [facility] Total Iron Binding Capacity 288 228 - 428 mcg/dL [facility] Percent Iron Saturation 15 15 - 50 % [facility] Unsaturated Iron Binding 245 ug/dL [facility] Blood Venous blood specimen / Unknown 05/05/2024 3:26 PM EST 05/05/2024 4:09 PM EST us Jade Hudson CURING BIN OPERATOR LAB BLOOD ORDERABLES Final Resul t Performing Organization Address City/[facility]/ZIP Co de Phone Number [facility] [address] [place] [phone] * Ferritin (05/05/2024 3:26 PM EST) Ferritin 33 10 - 122 ng/mL [facility] Blood Venous blood specimen / Unknown 05/05/2024 3:26 PM EST 05/05/2024 4:09 PM EST us Jade Hudson CURING BIN OPERATOR LAB BLOOD ORDERABLES Final Resul t Performing Organization Address [facility] Co de Phone Number [facility] [address] [place] [phone] * (ABNORMAL) Lipid Panel, Standard (05/05/2024 3:26 PM EST) Triglycerides 173(H) <150 mg/dL [facility] Comment:Desirable Triglyceri de: less than 150 mg/dLBorderline High Triglyceride 150-199 mg/dLHigh Triglyceride: 200-499 mg/dLVery High Triglyceride: greater than or equal to 5OO mg/dL Cholesterol 189 <200 mg/dL [facility] Comment:Desirable Cholestero l: less than 200 mg/dLBorderline High Cholesterol: 200-239 mg/dLHigh Cholesterol: greater than 239 mg/dL LDL Cholesterol Calculated 115(H) <100 mg/dL [facility] Comment:Desirable LDL: less than 100 mg/dLNear Optimal/Above Optimal LDL: 110- 129 mg/dLBorderline High LDL: 130-159 mg/dLHigh LDL: 160-189 mg/dLVery High LDL: greater than or equal to 190 mg/dL HDL Cholesterol 40(L) >40 mg/dL [facility] Comment:Desirable HDL: great er than 40 mg/dL Note: This HDL assay may give artificially low results in patients with liver disease. Blood Venous blood specimen / Unknown 05/05/2024 3:26 PM EST 05/05/2024 4:09 PM EST us Jade Hudson CURING BIN OPERATOR LAB BLOOD ORDERABLES Final Resul t [facility] [address] [place] [phone] [phone] * (ABNORMAL) Comprehensive Metabolic Panel (05/05/2024 3:26 PM EST) Sodium 137 135 - 145 mmol/L [facility] Potassium 3.9 3.3 - 5.1 mmol/L [facility] Chloride 103 96 - 108 mmol/L [facility] Carbon Dioxide 27 22 - 29 mmol/L [facility] Anion Gap 11(L) 12 - 20 [facility] Urea Nitrogen (BUN) 12 9 - 16 mg/dL [facility] Creatinine, Serum 0.73 0.5 - 1.4 mg/dL [facility] Estimated Glomerular Filt Rate >60 [facility] Comment:Chronic Kidney Disea se: Estimated GFR < 60 mL/min/1.00b7Jfhrel Kidney Disease: Estimated GFR < 15 mL/min/1.73m2 Glucose 115 60 - 115 mg/dL [facility] Calcium 9.6 8.4 - 10.2 mg/dL [facility] Bilirubin, Total 0.3 0.0 - 1.0 mg/dL [facility] Aspartate Amino Transferase 21 5 - 31 U/L [facility] Alanine Aminotransferase 32(H) 0 - 31 U/L [facility] Total Protein 8.0 6.5 - 8.0 g/dL [facility] Albumin Level 4.4 3.5 - 5.0 g/dL [facility] Alkaline Phosphatase 105 39 - 117 U/L [facility] Blood Venous blood specimen / Unknown 05/05/2024 3:26 PM EST 05/05/2024 4:09 PM EST Jade Becca CURING BIN OPERATOR LAB BLOOD ORDERABLES Final Resul t [facility] [address] [place] [phone] * HIV-1 RNA, Quantitative, Real-Time PCR with Reflex to Genotype (RTI, PI, Integrase) (07/20/2022 3:08 PM EST) HIV 1 RNA, QN PCR NOT DETECTED copies/mL [facility], HIV 1 RNA, QN PCR NOT DETECTED Log copies/mL [facility], Comment: REFERENCE RANGE: NOT DETECTED copies/mL ?NOT DETECTED ??Log copies/mL This test was performed using Real-Time Polymerase Chain Reaction. Reportable range is 20 to 10,000,000 copies/mL (1.30-7.00 Log copies/mL). 07/20/2022 3:08 PM EST 07/20/2022 3:09 PM EST Narrative [facility] - 07/24/2022 2:16 AM EST FASTING:NO SPECIALIZED COLLECTION. PATIENT REFERRED TO ALTERNATE SITE. FASTING: NO Herminia Claudia RABBLE FURNACE TENDER LAB BLOOD ORDERABLES Final Resu lt [facility] [address], [place] [address] [facility], [address] [place] [address] * Pap Smear (10/11/2020) Pap Negative for intraephithelial lesion or malignancy Negative for intraephithelial lesion or malignancy, Other HPV Undetected Undetected, Indeterminate, Quantitative, Not Detected Historical Provider MD HEALTH MAINTENANCE Final Result from Last 3 Months or Most Recently Relevant to Health Maintenance Insurance STANDARD Care Teams Outsole Splicer Relationship Specialty Start Date End Date Brandi Khalil FNP [address] [place] [phone] PCP - General Family Medicine 02/11/24
--- OUTSIDE RECORDS SUMMARY | 2024-07-28 07:51 | XMS_ITS | Encounter Summary ---
Author Organization [employer] Address [address] [place] [address] [place], [place] [address] Care Team Providers Care Emergency Management Program Specialist Name Role Phone China Santos MD Primary Care Provider + Herminia Taylor Primary Care Provider [phone] [facility] RAJNI Primary Care Provider [phone] Encounter Details Date Type Department Care Team (Late Contact Info) Description 02/12/2023 Abstract [facility] [address] [place] [address] China Santos MD [address] [place], [place] [phone] Social History Tobacco Use Types Packs/Day Years [...] Office Visit [facility] [address] [place] [address] [place] FNP [address] [place] [address] documented as of this encounter Visit Diagnoses Not on filedocumented in this encounter Additional Health Concerns Assessment Noted Time PHQ-9 Depression Total Score: 0 07/20/19 23 2:45 PM EST documented as of this encounter Care Teams Emergency Management Program Specialist Relationship Specialty Start Date End Date China Santos MD [address] [place] [phone] PCP - General Family Medicine 08/08/17 04/15/23 Herminia Taylor FNP [address] [place] [phone] PCP - General Family Medicine 04/16/23 02/10/24 [place]andi s[place] FNP [address] [place] [phone] PCP - General Family Medicine 02/11/24 documented as of this encounter
== END ==
LOC: HO.CARD 07:48
PROVIDERS: PCP Registered Nurse; Visit Provider Registered Nurse
DX: R00.2 Palpitations (principal)
CPT/HCPCS: 93225

== ENCOUNTER → 2024-07-28 07:51 | Outpatient (BNV) | payer MEDICAID, SELFPAY | PROVIDERS: PCP Registered Nurse; Visit Provider Internal Medicine Cardiovascular Disease | DX: I49.3 Ventricular premature depolarization (principal) | CPT/HCPCS: 93227 ==

== ENCOUNTER 2024-08-06 14:21 | Outpatient (REF) | payer MEDICAID, SELFPAY ==
[2024-08-06 16:14] LABS: MANUAL DIFF FLAG NO
[2024-08-06 16:18] LABS: Basophils Absolute Auto 0.1 X10*3/uL (0.0-0.2); Basophils Percent Auto 0.5 % (0-2); Eosinophils Absolute Auto 0.3 X10*3/uL (0.0-0.4); Eosinophils Percent Auto 2.3 % (0-4); Hematocrit 36.2 % (37.0-47.0); Hemoglobin 11.6 g/dl (12.0-16.0); Imm Gran Abs Auto 0.05 X10*3/uL (0.00-0.03); Imm Gran Pct Auto 0.4 % (0.0-0.4); Immature Retic Fraction 18.1 % (3.0-15.9); Lymphocytes Absolute Auto 3.9 X10*3/uL (1.2-4.9); Lymphocytes Percent Auto 32.7 % (20-40); Mean Corpuscular Hemoglobin 26.9 pg (27.0-33.0); Mean Corpuscular Volume 83.8 fL (80.0-98.0); Mean Platelet Volume 9.8 fL (9.4-12.3); Monocytes Absolute Auto 0.4 X10*3/uL (0.1-1.2); Monocytes Percent Auto 3.4 % (2-11); Neutrophils Absolute Auto 7.1 x10*3/uL (2.0-8.3); Neutrophils Percent Auto 60.7 % (45-73); Platelet Count 348 X10*3/uL (160-400); Red Blood Count 4.32 X10*6/uL (4.20-5.50); Red Cell Distribution Width 14.3 % (11.0-16.0); Retic HGB Equivalent 29.9 pg (30.0-35.0); Reticulocyte Percent 2.1 % (0.5-1.8); Reticulocytes Absolute 0.092 X10*6/uL (0.026-0.095); White Blood Count 11.8 X10*3/uL (4.8-10.8)
--- OUTSIDE RECORDS SUMMARY | 2024-08-06 17:31 | XMS_ITS | Clinical Summary ---
Author Organization [facility] Address [address] [place] [address] Phone Care Team Providers Care Associate Merchant Name Role Phone Jade Hudson RAJNI Primary Care Provider [phone] Social History Tobacco Use Types Packs/Day Years Used Date Smoking Tobacco: Never Assessed Comments Unknown Sex and Gender Information Value Date Recorded Sex Assigned at Not on file Legal Sex Female 7:26 AM EST Gender Identity Not on file Sexual Orientation Not on file Plan of Treatment Upcoming Encounters Date Type Department Care Team ([facility] Contact Info) Description 08/17/2024 3:00 PM EDT Consult Orthopedic Surgery - [place] [phone] [phone] Dominik Gonzalez, DPM [address] [address] Health Maintenance Due Date Last Done Comments DTaP,Tdap,and Td Vaccines (1 - Tdap) 2012 Hepatitis B Vaccines (1 of 3 - [...] topic Insurance MEDICAID - [place] Care Teams Associate Merchant Relationship Specialty Start Date End Date Jade Hudson FNP [address] [place] [phone] PCP - General Nurse Practitioner 05/22/24
== END 2024-08-06 14:22 | disposition home or self-care (01) ==
LOC: HO.HHCL 14:21
PROVIDERS: Visit Provider Registered Nurse
DX: D50.9 Iron deficiency anemia, unspecified (principal)
CPT/HCPCS: 85025; 85045